=== PATIENT | female | born 1985 | race Caucasian/White ===

== ENCOUNTER 2018-03-01 13:14 | Emergency (ER) | payer SELFPAY ==
--- NOTE | 2018-03-01 14:56 | ER ---
Nurse's Notes [facility] Name: Michelle Plasencia Age: 33 yrs Sex: Female : 1985 Arrival Date: 03/01/2018 Time: 13:18 Bed Treatment Private MD: Diagnosis: Cutaneous abscess of chest wall Presentation: 03/01 13:29 Presenting complaint:. ch 13:29 Presenting complaint: Patient states: infection to my R breast, I think its an abscess. ch I was exposed to TB for months at my job. I am very tired and worried I have sepsis again from the abscess. Transition of care: patient was not received from another setting of care. Onset of symptoms was February 27, 2018. Initial Sepsis Screen: Does the patient meet any 2 criteria? No. Patient's initial sepsis screen is negative. Does the patient have a suspected source of infection? Yes: Skin breakdown/wound. Care prior to arrival: None. 13:29 Method Of Arrival: Ambulatory 13:29 Acuity: OFELIA 4 ch Triage Assessment: 13:32 General: Appears in no apparent distress. comfortable, Behavior is calm, cooperative, ch appropriate for age. Pain: Complains of pain in right breast Pain currently is 6 out of 10 on a pain scale. Respiratory: Airway is patent Respiratory effort is even, unlabored. 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 - Social history:: Smoking status: Patient uses tobacco products, smokes one pack cigarettes per day. Patient uses alcohol, weekly. Patient/guardian denies using street drugs. Screenin:56 Abuse screen: Denies threats or abuse. Denies injuries from another. Nutritional ed1 screening: No deficits noted. Tuberculosis screening: Never had TB. Possible symptoms: None Risk factors: Patient reports being exposed at her place of employment. Health officials have been notified and all employees have been tested with negative results. Intervention for positive screen: ED Physician notified, No orders received at this time. Fall Risk None identified. Assessment: 14:56 General: Appears in no apparent distress. Behavior is calm, cooperative. Pain: ed1 Complains of pain in right breast Pain does not radiate. Pain currently is 6 out of 10 on a pain scale. Quality of pain is described as aching, Pain began 2-3 days ago. Is continuous. Neuro: Level of Consciousness is awake, alert, obeys commands, Oriented to person, place, time, situation. Cardiovascular: Denies chest pain, Heart tones S1 S2 present. Respiratory: Airway is patent Trachea midline Respiratory effort is even, unlabored, Respiratory pattern is regular, symmetrical, Breath sounds are clear bilaterally. GI: No signs and/or symptoms were reported involving the gastrointestinal system. : No signs and/or symptoms were reported regarding the genitourinary system. EENT: No signs and/or symptoms were reported regarding the EENT system. Derm: Skin is healthy with good turgor, Skin is dry, Skin is normal, Skin temperature is warm Abscess located on right breast is dime sized, is red, is raised. Musculoskeletal: Circulation, motion, and sensation intact. 14:56 Reassessment: I agree with assessment completed by JACQUELINE Kelly . aaNavneet 15:09 Reassessment: Patient appears in no apparent distress at this time. No changes from ed1 previously documented assessment. Patient and/or family updated on plan of care and expected duration. Pain level reassessed. Patient is alert, oriented x 3, equal unlabored respirations, skin warm/dry/pink. Vital Signs: 13:32 BP 121 / 78; Pulse 89; Resp 16; Temp 98.2(O); Pulse Ox 99% on R/A; Weight 99.79 kg; Height 5 ft. 7 in. (170.18 cm); Pain 6/10; 15:09 BP 122 / 74; Pulse 86; Resp 16; Temp 98.7(O); Pulse Ox 100% on R/A; Pain 6/10; ed1 13:32 Body Mass Index 34.46 (99.79 kg, 170.18 cm) ED Course: 13:18 Patient arrived in ED. sb2 13:31 Triage completed. 13:32 Arm band placed on left wrist. Patient placed in waiting room. 14:34 Leticia Newby LVN is Primary Nurse. ed1 14:34 Clara Black FNP-C is [facility]. 14:34 Cruz Traylor MD is Attending Physician. kb 14:56 Patient has correct armband on for positive identification. Call light in reach. ed1 15:09 No provider procedures requiring assistance completed. Patient did not have IV access ed1 during this emergency room visit. Administered Medications: 15:06 Drug: Bactrim (160 mg-800 mg (DS) 1 tablet Route: PO; ed1 15:10 Follow up: Response: Medication administered at discharge. ed1 Outcome: 14:56 Discharge ordered by MD. kb 15:09 Discharged to home ambulatory. ed1 15:09 Condition: good 15:09 Discharge instructions given to patient, Instructed on discharge instructions, follow up and referral plans. medication usage, Demonstrated understanding of instructions, follow-up care, medications, Prescriptions given X 1. 15:11 Patient left the ED. ed1 Signatures: Clara Black FNP-C FNP-Ckb Hammond, Christina, RN RN Marylou Arredondo RN RN aa5 Leticia Newby LVN LVN ed1 Yudelka Olivo sb2
--- NOTE | 2018-03-01 14:57 | EDPHYS ---
Physician Documentation [facility] Name: Michelle Plasencia Age: 33 yrs Sex: Female : 1985 Arrival Date: 03/01/2018 Time: 13:18 Bed Treatment Private MD: ED Physician Cruz Traylor HPI: 03/01 14:54 This 33 yrs old Female presents to ER via Ambulatory with complaints of kb INFECTION UNDER BREAST, Weakness. 14:54 The patient presents with an abscess of the right breast. Description: draining, kb erythematous, swollen. Onset: The symptoms/episode began/occurred 3 day(s) ago. Possible cause(s): unknown. Associated signs and symptoms: Pertinent positives: drainage, erythema, swelling, Pertinent negatives: foreign body sensation, fever, headache, nausea, shortness of breath, vomiting. Modifying factors: the symptoms are alleviated by nothing, the symptoms are aggravated by pressure, squeezing the lesion and expressing the contents, touching. Severity of symptoms: At their worst the symptoms were very mild, in the emergency department the symptoms are unchanged. The patient has not experienced similar symptoms in the past. The patient has not recently seen a physician. Pt reports abscess to right breast that started a few days ago and popped yesterday. . 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 - Social history:: Smoking status: Patient uses tobacco products, smokes one pack cigarettes per day. Patient uses alcohol, weekly. Patient/guardian denies using street drugs. ROS: 14:53 Constitutional: Negative for fever, chills, and weight loss, Cardiovascular: Negative kb for chest pain, palpitations, and edema, Respiratory: Negative for shortness of breath, cough, wheezing, and pleuritic chest pain, Abdomen/GI: Negative for abdominal pain, nausea, vomiting, diarrhea, and constipation, MS/Extremity: Negative for injury and deformity, Neuro: Negative for headache, weakness, numbness, tingling, and seizure. 14:53 Skin: Positive for abscess, of the right breast. Exam: 14:53 Constitutional: This is a well developed, well nourished patient who is awake, alert, kb and in no acute distress. Head/Face: Normocephalic, atraumatic. Chest/axilla: Normal chest wall appearance and motion. Nontender with no deformity. No lesions are appreciated. Cardiovascular: Regular rate and rhythm with a normal S1 and S2. No gallops, murmurs, or rubs. Normal PMI, no JVD. No pulse deficits. Respiratory: Lungs have equal breath sounds bilaterally, clear to auscultation and percussion. No rales, rhonchi or wheezes noted. No increased work of breathing, no retractions or nasal flaring. Abdomen/GI: Soft, non-tender, with normal bowel sounds. No distension or tympany. No guarding or rebound. No evidence of tenderness throughout. MS/ Extremity: Pulses equal, no cyanosis. Neurovascular intact. Full, normal range of motion. Neuro: Awake and alert, GCS 15, oriented to person, place, time, and situation. Cranial nerves II-XII grossly intact. Motor strength 5/5 in all extremities. Sensory grossly intact. Cerebellar exam normal. Normal gait. 14:53 Skin: abscess, that is small, of the right breast, with drainage, that is purulent, with induration. Vital Signs: 13:32 BP 121 / 78; Pulse 89; Resp 16; Temp 98.2(O); Pulse Ox 99% on R/A; Weight 99.79 kg; ch Height 5 ft. 7 in. (170.18 cm); Pain 6/10; 15:09 BP 122 / 74; Pulse 86; Resp 16; Temp 98.7(O); Pulse Ox 100% on R/A; Pain 6/10; ed1 13:32 Body Mass Index 34.46 (99.79 kg, 170.18 cm) ch MDM: 14:34 Patient medically screened. kb 14:53 Data reviewed: vital signs, nurses notes. Data interpreted: Pulse oximetry: on room air kb is 99 %. Interpretation: normal. Counseling: I had a detailed discussion with the patient and/or guardian regarding: the historical points, exam findings, and any diagnostic results supporting the discharge/admit diagnosis, the need for outpatient follow up, a family practitioner, a general surgeon, to return to the emergency department if symptoms worsen or persist or if there are any questions or concerns that arise at home. Administered Medications: 15:06 Drug: Bactrim (160 mg-800 mg (DS) 1 tablet Route: PO; ed1 15:10 Follow up: Response: Medication administered at discharge. ed1 Disposition: 22:32 Co-signature as Attending Physician, Cruz Traylor MD I agree with the assessment and kdr plan of care. Disposition: 03/01/18 14:56 Discharged to Home. Impression: Cutaneous abscess of chest wall. - Condition is Stable. - Discharge Instructions: Abscess, [id number]. - Prescriptions for Bactrim DS 800- 160 mg Oral Tablet - take 1 tablet by ORAL route every 12 hours for 7 days; 14 tablet. - Medication Reconciliation Form, Thank You Letter, Antibiotic Education, Prescription Opioid Use, Work release form form. - Follow up: Emergency Department; When: As needed; Reason: Worsening of condition. Follow up: Private Physician; When: 2 - 3 days; Reason: Recheck today's complaints, Continuance of care, Re-evaluation by your physician. Signatures: Clara Black, ANDERSON-C TECHNICAL SERVICES CONSULTANT-Miranda Chau RN RN ch Rittger, Kevin, MD MD [facility] Leticia Newby, WAFER FABRICATION OPERATOR WAFER FABRICATION OPERATOR ed1 Corrections: (The following items were deleted from the chart) 15:11 14:56 03/01/2018 14:56 Discharged to Home. Impression: Cutaneous abscess of chest wall. ed1 Condition is Stable. Forms are Medication Reconciliation Form, Thank You Letter, Antibiotic Education, Prescription Opioid Use. Follow up: Emergency Department; When: As needed; Reason: Worsening of condition. Follow up: Private Physician; When: 2 - 3 days; Reason: Recheck today's complaints, Continuance of care, Re-evaluation by your physician. kb
[2018-03-01] MEDS ORDERED: SMZ./TMP. 800/160 MG TABLET ONE (15:03)
[2018-03-01 15:18] VITALS: BP 122/74; TEMP 98.7; O2SAT 100
== END 2018-03-01 15:11 | disposition home or self-care (01) ==
LOC: ER 13:14
DX: L02.213 Cutaneous abscess of chest wall (principal); R01.1 Cardiac murmur, unspecified; Z91.030 Bee allergy status; Z91.040 Latex allergy status; Z91.048 Other nonmedicinal substance allergy status
CPT/HCPCS: 99283

== ENCOUNTER 2018-03-07 03:03 | Emergency (ER) | payer SELFPAY ==
[2018-03-07] MEDS ORDERED: WATER FOR INJ,STERILE 10 ML ONE (03:24)
[2018-03-07] MEDS ORDERED: ZIPRASIDONE MESYLA 20 MG/VIAL IM ONE (03:24)
[2018-03-07 03:49] LABS: Absolute Lymphocytes (CBC) 2.2 K/uL (0.7-4.9); Absolute Monocytes 0.5 K/uL (0.1-1.3); Absolute Neutrophil 4.6 K/uL (1.8-8.0); Basophils % 0.9 % (0-1.3); Eosinophils % 0.5 % (0-4.4); Hematocrit 47.2 % (36.0-45.0); Lymphocytes % 29.9 % (15.3-44.8); MCH 34.3 pg (27.0-35.0); MCV 100.8 fL (80-100); MPV 9.2 fL (7.6-11.3); Monocytes % 7.1 % (3.3-12.3); RBC Red Blood Cell Count 4.69 M/uL (3.86-4.86)
[2018-03-07 03:53] LABS: Bicarbonate 24 mEq/L (21-31); Glucose Level 113 mg/dL (65-120); Potassium 3.7 mEq/L (3.6-5.0); Protime INR 1.01; Sodium Level 142 mEq/L (135-145)
[2018-03-07] MEDS ORDERED: ACT CHARCOAL/SORB 50 GM/240ML ONE (03:54)
[2018-03-07 04:01] LABS: ALT/SGPT 66 IU/L (10-60); AST/SGOT 41 IU/L (10-42); Albumin 4.4 g/dL (3.2-5.5); Alkaline Phosphatase 97 IU/L (42-121); BUN Blood Urea Nitrogen 6 mg/dL (6-20); Bilirubin Direct 0.1 mg/dL (0-0.2); Bilirubin Total 0.5 mg/dL (0.3-1.2)
[2018-03-07 04:08] LABS: Barbiturates NEGATIVE; Benzodiazepines NEGATIVE; Cocaine NEGATIVE; METHAMPHETAM NEGATIVE; Opiates NEGATIVE; Phencyclidine NEGATIVE; THC Cannibis NEGATIVE
[2018-03-07] MEDS ORDERED: ONDANSETRON 4 MG/2 ML VIAL ONE (04:19)
[2018-03-07 04:23] LABS: Alcohol Serum/Plasma 197 mg/dl; Salicylates Level < 4.0 mg/dl (<30)
[2018-03-07] MEDS ORDERED: NA CHLORIDE 0.9% 1,000 ML ONE (08:27)
[2018-03-07] MEDS ORDERED: THIAMINE 200 MG/2 ML INJ ONE (08:27)
--- NOTE | 2018-03-07 08:44 | EKG ---
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
[2018-03-07 09:48] LABS: Salicylates Level < 4.0 mg/dl (<30)
--- NOTE | 2018-03-07 10:01 | ER ---
Nurse's Notes [facility] Name: Michelle Plasencia Age: 33 yrs Sex: Female : 1985 Arrival Date: 03/07/2018 Time: 03:11 Bed 18 Private MD: Diagnosis: Alcohol abuse with intoxication;Major depressive disorder, recurrent Presentation: 03/07 03:11 Presenting complaint: EMS states: "We were called out for a pt who had taken a large jd3 number of unknown pills and 2 bottles of wine, family reported she wanted to kill herself." pt brought by EMS with [place] [employer] assisting. "Police initially called out for family reporting that the pt was wanting to kill herself with 3 steps: 1. alcohol 2. drugs 3. gas poisoning.". Transition of care: patient was not received from another setting of care. Onset of symptoms was March 07, 2018. Initial Sepsis Screen: Does the patient meet any 2 criteria? No. Patient's initial sepsis screen is negative. Does the patient have a suspected source of infection? No. Patient's initial sepsis screen is negative. Care prior to arrival: None. 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 - Social history:: Smoking status: Patient uses tobacco products, smokes one pack cigarettes per day. Screenin:19 Abuse screen: Denies threats or abuse. Nutritional screening: No deficits noted. jd3 Tuberculosis screening: No symptoms or risk factors identified. Fall Risk Secondary diagnosis (15 points) impaired mobility, Mental Status- Overestimates/Forgets Limitations (15 pts.). Total Jackson Fall Scale indicates Low Risk Score (25-44 pts). Fall prevention measures have been instituted. Side Rails Up X 2 Placed close to Nursing Station Frequent Obs/Assesments occuring. Assessment: 03:25 General: Appears uncomfortable, Behavior is agitated, Smells of alcohol. Pain: Denies jd3 pain. Neuro: Level of Consciousness is awake, obeys commands, Oriented to person, place, time, situation, Speech is slurred. Cardiovascular: Heart tones S1 S2 present Capillary refill < 3 seconds Patient's skin is warm and dry. Pulses are palpable in right radial artery and left radial artery. Respiratory: Airway is patent Respiratory effort is even, unlabored, Respiratory pattern is regular, symmetrical, Breath sounds are clear bilaterally. GI: Abdomen is round obese, Bowel sounds present X 4 quads. Abd is soft and non tender X 4 quads. Patient currently denies abdominal pain, constipation, diarrhea, nausea, vomiting. : No signs and/or symptoms were reported regarding the genitourinary system. EENT: No signs and/or symptoms were reported regarding the EENT system. Derm: Skin is intact, Skin is dry, Skin is normal, Skin temperature is warm. Musculoskeletal: Circulation, motion, and sensation intact. Range of motion: intact in all extremities. 03:36 Reassessment: pt agreed to cooperate with medical staff pt requesting not to be given jd3 the Geodon. Provider notified, provider stated "hold the Geodon until needed.". 04:35 Reassessment: Patient appears in no apparent distress at this time. No changes from jd3 previously documented assessment. Patient and/or family updated on plan of care and expected duration. Pain level reassessed. Patient is alert, oriented x 3, equal unlabored respirations, skin warm/dry/pink. sitter at bedside. 05:30 Reassessment: Patient appears in no apparent distress at this time. Patient and/or jd3 family updated on plan of care and expected duration. Pain level reassessed. Patient is alert, oriented x 3, equal unlabored respirations, skin warm/dry/pink. sitter at bedside. 06:30 Reassessment: Patient appears in no apparent distress at this time. Patient and/or jd3 family updated on plan of care and expected duration. Pain level reassessed. Patient is alert, oriented x 3, equal unlabored respirations, skin warm/dry/pink. pt resting in bed with eyes closed, even and unlabored respirations, sitter at bedside, no distress noted at this time. 07:12 General: Appears in no apparent distress. comfortable, Behavior is calm, cooperative, ch appropriate for age, quiet, Smells of alcohol. Pain: Complains of pain in head and back of head Pain currently is 4 out of 10 on a pain scale. Pain began gradually. Neuro: Level of Consciousness is awake, obeys commands, Oriented to person, place, time, situation, Network Analyst are equal bilaterally Moves all extremities. Speech is slurred, Facial symmetry appears normal, Facial symmetry: tongue is midline. Cardiovascular: Heart tones S1 S2 present Capillary refill < 3 seconds in bilateral fingers toes Clubbing of nail beds is absent Patient's skin is warm and dry. Pulses are all present. Edema is absent. Respiratory: Airway is patent Respiratory effort is even, unlabored. GI: No signs and/or symptoms were reported involving the gastrointestinal system. : No signs and/or symptoms were reported regarding the genitourinary system. EENT: No signs and/or symptoms were reported regarding the EENT system. Derm: Skin is pink, warm \\T\\ dry. 07:14 Reassessment: Ailyn is at bedside as sitter for pt today. 07:52 Reassessment: Patient appears in no apparent distress at this time. No changes from previously documented assessment. 07:57 Reassessment: Patient appears in no apparent distress at this time. Patient and/or ch family updated on plan of care and expected duration. Pain level reassessed. erp in room discussing plan of care with pt. pt states she does not want to hurt herself, states she does not want to . she states she just got drunk last night and made a mistake. 09:10 Reassessment: Patient appears in no apparent distress at this time. PT EATS ALL OF HER BREAKFAST, REPEAT LABS DRAWN NOW. 09:42 Reassessment: Patient appears in no apparent distress at this time. Patient and/or ch family updated on plan of care and expected duration. Pain level reassessed. Patient is alert, oriented x 3, equal unlabored respirations, skin warm/dry/pink. family at bedside, erp speaks with family. awaiting lab results. 10:20 Reassessment: Patient appears in no apparent distress at this time. Patient and/or ch family updated on plan of care and expected duration. Pain level reassessed. Patient is alert, oriented x 3, equal unlabored respirations, skin warm/dry/pink. pt states she is feeling better, denies waitng to harm herself or others. pt has family at bedside, who states they want to stay with the pt for a few days. pt states her plan is to go home and sleep today, call the [facility] to get and appointment, go to the appointment then go back to work. pt and family states they feel comfortable with the discharge. pt states if she feels suicidal or feels like harming herself she will come back, tell her mom, or call 911. pt verb understanding, denies wanting to harm herself or others again. pt states she was feeling this way because she was drunk, and she wont be drinking any time soon. 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 alcohol 2. drugs 3. gas poisoning.". Objective: Patient is defensive, irritable, Speech is slurred, Affect is inappropriate. Interventions: Removed personal items and placed in bag. Patient placed in hospital gown. Searched person for dangerous items. Suicide Risk Assessment: Sad Person Scale: Sex of patient: Female: Score 0 points. Age of patient: Score 1 point if patient 15-34. Depression: Score 0 point if signs of depression are not present. Previous Attempt: Score 1 point if patient has previously attempted suicide. Substance Abuse: Score 1 point if patient abuses alcohol or drugs. Rational Thinking: Score 1 point if patient is lacking rational thinking. Social Support: Score 0 if social support is present/available. Organized Plan: Score 1 point if patient had a plan in place. Relationship: Score 0 point if patient has a spouse or domestic partner. Chronic Sickness: Score 0 point if patient does not have a chronic illness, debilitating, or severe disorder. TOTAL POINTS: If total points are 5-6, proposed clinical action is to strongly consider hospitalization, depending upon confidence in the follow-up arrangement. Implement suicide precautions. Safety Checks: Personal items have been removed. Door is open. No visitors are present at this time. Pt denies substance abuse. 10:28 Commitment: family at bedside, states they will stay with the patient for a few days. Vital Signs: 03:18 BP 114 / 66; Pulse 96; Resp 17 S; Temp 99.2(O); Pulse Ox 97% on R/A; Weight 102.51 kg jd3 (R); Height 5 ft. 7 in. (170.18 cm) (R); Pain 0/10; 04:36 BP 111 / 63; Pulse 89; Resp 18 S; Temp 97.6(O); Pulse Ox 97% on R/A; Pain 0/10; jd3 05:42 BP 102 / 65; Pulse 81; Resp 15 S; Temp 97.7(O); Pulse Ox 95% on R/A; Pain 0/10; jd3 07:12 BP 109 / 73; Pulse 90; Resp 16; Temp 97.2; Pulse Ox 96% on R/A; Pain 4/10; ch 10:25 BP 115 / 78; Pulse 78; Resp 15; Temp 98.2; Pulse Ox 99% on R/A; Pain 0/10; ch 03:18 Body Mass Index 35.40 (102.51 kg, 170.18 cm) jd3 ED Course: 03:11 Patient arrived in ED. jd3 03:15 Triage completed. jd3 03:15 Safety Checks: Personal items have been removed The door is open or patient has been jd3 placed in a hallway bed/chair. There are no family/friend visitors at this time. 03:18 Terrance Vazquez MD is Attending Physician. tw4 03:19 Arm band placed on. jd3 03:22 Inserted saline lock: 20 gauge in right antecubital area, using aseptic technique. jd3 Blood collected. 03:25 Patient has correct armband on for positive identification. Placed in gown. Bed in low jd3 position. Side rails up X2. 03:30 Safety Checks: Personal items have been removed The door is open or patient has been jd3 placed in a hallway bed/chair. There are no family/friend visitors at this time. 03:32 Christ Delgado RN is Primary Nurse. jd3 03:45 Safety Checks: Personal items have been removed The door is open or patient has been jd3 placed in a hallway bed/chair. There are no family/friend visitors at this time. 04:00 Safety Checks: Personal items have been removed The door is open or patient has been jd3 placed in a hallway bed/chair. There are no family/friend visitors at this time. 04:15 Safety Checks: Personal items have been removed The door is open or patient has been jd3 placed in a hallway bed/chair. There are no family/friend visitors at this time. 04:23 Notified ED physician of a critical lab result(s). tylenol level of 79.9. fc 04:30 Safety Checks: Personal items have been removed The door is open or patient has been jd3 placed in a hallway bed/chair. There are no family/friend visitors at this time. 04:45 Safety Checks: Personal items have been removed The door is open or patient has been jd3 placed in a hallway bed/chair. There are no family/friend visitors at this time. 05:00 Safety Checks: Personal items have been removed The door is open or patient has been jd3 placed in a hallway bed/chair. There are no family/friend visitors at this time. 05:15 Safety Checks: Personal items have been removed The door is open or patient has been jd3 placed in a hallway bed/chair. There are no family/friend visitors at this time. 05:30 Safety Checks: Personal items have been removed The door is open or patient has been jd3 placed in a hallway bed/chair. There are no family/friend visitors at this time. 05:45 Safety Checks: Personal items have been removed The door is open or patient has been jd3 placed in a hallway bed/chair. There are no family/friend visitors at this time. 06:00 Safety Checks: Personal items have been removed The door is open or patient has been jd3 placed in a hallway bed/chair. There are no family/friend visitors at this time. 06:15 Safety Checks: Personal items have been removed The door is open or patient has been jd3 placed in a hallway bed/chair. There are no family/friend visitors at this time. 06:30 Safety Checks: Personal items have been removed The door is open or patient has been jd3 placed in a hallway bed/chair. There are no family/friend visitors at this time. 06:45 Safety Checks: Personal items have been removed The door is open or patient has been jd3 placed in a hallway bed/chair. There are no family/friend visitors at this time. 07:00 No apparent distress. Resting quietly. Safety Checks: Personal items have been removed ch The door is open or patient has been placed in a hallway bed/chair. There are no family/friend visitors at this time. 07:11 Primary Nurse role handed off by Christ Delgado RN 07:11 Miranda Cisneros, DANILO is Primary Nurse. 07:12 No provider procedures requiring assistance completed. 07:15 Safety Checks: Personal items have been removed The door is open or patient has been ch placed in a hallway bed/chair. There are no family/friend visitors at this time. 07:28 Attending Physician role handed off by Terrance Vazquez MD [facility] 07:28 Heath Mandel MD is Attending Physician. [facility] 07:30 Safety Checks: Personal items have been removed The door is open or patient has been ch placed in a hallway bed/chair. There are no family/friend visitors at this time. 07:45 Safety Checks: Personal items have been removed The door is open or patient has been ch placed in a hallway bed/chair. There are no family/friend visitors at this time. 08:00 Safety Checks: Personal items have been removed The door is open or patient has been ch placed in a hallway bed/chair. There are no family/friend visitors at this time. 08:15 Safety Checks: Personal items have been removed The door is open or patient has been ch placed in a hallway bed/chair. There are no family/friend visitors at this time. 08:30 Safety Checks: Personal items have been removed The door is open or patient has been ch placed in a hallway bed/chair. There are no family/friend visitors at this time. 08:45 Safety Checks: Personal items have been removed The door is open or patient has been ch placed in a hallway bed/chair. There are no family/friend visitors at this time. 09:00 Safety Checks: Personal items have been removed The door is open or patient has been ch placed in a hallway bed/chair. There are no family/friend visitors at this time. 09:15 No apparent distress. Resting quietly. Safety Checks: Personal items have been removed ch The door is open or patient has been placed in a hallway bed/chair. There are no family/friend visitors at this time. 09:30 Safety Checks: Personal items have been removed The door is open or patient has been ch placed in a hallway bed/chair. There are no family/friend visitors at this time. 09:43 Safety Checks: Personal items have been removed The door is open or patient has been ch placed in a hallway bed/chair. There are no family/friend visitors at this time. 10:00 Safety Checks: Personal items have been removed The door is open or patient has been ch placed in a hallway bed/chair. There are no family/friend visitors at this time. 10:15 Safety Checks: Personal items have been removed The door is open or patient has been ch placed in a hallway bed/chair. There are no family/friend visitors at this time. 10:25 IV discontinued, intact, bleeding controlled, No redness/swelling at site. Pressure ch dressing applied. 10:27 Safety Checks: Personal items have been removed The door is open or patient has been ch placed in a hallway bed/chair. There are no family/friend visitors at this time. Administered Medications: 04:21 Drug: Zofran 4 mg Route: IVP; Site: right antecubital; ak1 07:00 Follow up: Response: No adverse reaction; Nausea is decreased jd3 07:53 Follow up: Response: No adverse reaction; Marked relief of symptoms ch 04:27 Drug: Charcoal Suspension 50 grams Route: PO; jd3 07:00 Follow up: Response: No adverse reaction jd3 07:03 Not Given (Physician Discretion): Geodon 10 mg IM once jd3 08:30 Drug: NS 0.9% 1000 ml Route: IV; Rate: 1 bolus; Site: right antecubital; ch 09:18 Follow up: IV Status: Completed infusion; IV Intake: 1000ml ch 08:30 Drug: Thiamine 100 mg Route: IV; Rate: bolus; Site: right antecubital; ch 09:18 Follow up: IV Status: Completed infusion; IV Intake: 1000ml ch Intake: 09:18 IV: 1000ml; Total: 1000ml. ch 09:18 IV: 1000ml; Total: 2000ml. ch Output: 08:22 Urine: 1ml (Voided); Total: 1ml. rb1 Outcome: 10:00 Discharge ordered by . ankita 10:27 Discharged to home ambulatory, with family. ch 10:27 Condition: stable 10:27 Discharge instructions given to patient, family, Instructed on discharge instructions, follow up and referral plans. return for feeling hopeless, depressed, SI, HI, or abdominal pain 10:28 Patient left the ED. ch Signatures: Miranda Cisneros, RN Heath López ch, MD MD cha Chretien, Felicia RN Katiana Lezama RN RN ak1 Bev Almaraz RN RN rb1 Christ Delgado RN RN jd3 Wadley, Terrence, MD MD tw4 Corrections: (The following items were deleted from the chart) 03:35 03:11 Presenting complaint: EMS states: "We were called out for a pt who had taken a jd3 large number of unknown pills and 2 bottles of wine, family reported she wanted to kill herself." pt brought by EMS with PD assisting. jd3 03:40 03:25 Cardiovascular: Capillary refill < 3 seconds Patient's skin is warm and dry. jd3 Pulses are palpable in right radial artery and left radial artery jd3 03:40 03:25 Respiratory: Airway is patent Respiratory effort is even, unlabored, Respiratory jd3 pattern is regular, symmetrical, Breath sounds are clear bilaterally. jd3 03:40 03:25 GI: Abdomen is round obese, Patient currently denies abdominal pain, jd3 constipation, diarrhea, nausea, vomiting, jd3 03:40 03:25 GI: Abdomen is round obese, Bowel sounds present X 4 quads. Patient currently jd3 denies abdominal pain, constipation, diarrhea, nausea, vomiting, jd3 04:36 03:41 Safety Checks: Personal items have been removed The door is open or patient has jd3 been placed in a hallway bed/chair. There are no family/friend visitors at this time jd3 06:37 04:35 Reassessment: Patient appears in no apparent distress at this time. No changes jd3 from previously documented assessment. Patient and/or family updated on plan of care and expected duration. Pain level reassessed. Patient is alert, oriented x 3, equal unlabored respirations, skin warm/dry/pink. jd3 06:37 05:30 Reassessment: Patient appears in no apparent distress at this time. Patient jd3 and/or family updated on plan of care and expected duration. Pain level reassessed. Patient is alert, oriented x 3, equal unlabored respirations, skin warm/dry/pink. jd3
--- NOTE | 2018-03-07 10:01 | EDPHYS ---
Physician Documentation [facility] Name: Michelle Plasencia Age: 33 yrs Sex: Female : 1985 Arrival Date: 03/07/2018 Time: 03:11 Bed 18 Private MD: ED Physician Heath Mandel HPI: 03/07 03:56 This 33 yrs old Female presents to ER via EMS with complaints of suicidal tw4 ideation. 07:15 The patient presents to the emergency department with suicide ideation. Onset: The tw4 symptoms/episode began/occurred today. Past psychiatric history: Prior diagnosis: bipolar disorder. Associated signs and symptoms: The patient has no apparent associated signs or symptoms. Severity of symptoms: At their worst the symptoms were moderate in the emergency department the symptoms are unchanged. The patient has not experienced similar symptoms in the past. 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 - Social history:: Smoking status: Patient uses tobacco products, smokes one pack cigarettes per day. ROS: 07:15 Constitutional: Negative for fever, chills, and weight loss, Eyes: Negative for injury, tw4 pain, redness, and discharge, Cardiovascular: Negative for chest pain, palpitations, and edema, Respiratory: Negative for shortness of breath, cough, wheezing, and pleuritic chest pain, Abdomen/GI: Negative for abdominal pain, nausea, vomiting, diarrhea, and constipation, MS/Extremity: Negative for injury and deformity, Neuro: Negative for headache, weakness, numbness, tingling, and seizure. 07:15 Psych: Positive for depression, suicide gesture, suicidal ideation. Exam: 07:15 Head/Face: Normocephalic, atraumatic. Chest/axilla: Normal chest wall appearance and tw4 motion. Nontender with no deformity. No lesions are appreciated. Cardiovascular: Regular rate and rhythm with a normal S1 and S2. No gallops, murmurs, or rubs. Normal PMI, no JVD. No pulse deficits. Respiratory: Lungs have equal breath sounds bilaterally, clear to auscultation and percussion. No rales, rhonchi or wheezes noted. No increased work of breathing, no retractions or nasal flaring. Abdomen/GI: Soft, non-tender, with normal bowel sounds. No distension or tympany. No guarding or rebound. No evidence of tenderness throughout. MS/ Extremity: Pulses equal, no cyanosis. Neurovascular intact. Full, normal range of motion. Neuro: Awake and alert, GCS 15, oriented to person, place, time, and situation. Cranial nerves II-XII grossly intact. Motor strength 5/5 in all extremities. Sensory grossly intact. Cerebellar exam normal. Normal gait. 07:15 Constitutional: The patient appears agitated. 07:15 Psych: Behavior/mood is cooperative, aggressive, uncooperative, Affect is flat, Oriented to person, place, time, Patient having thoughts of suicide. Vital Signs: 03:18 BP 114 / 66; Pulse 96; Resp 17 S; Temp 99.2(O); Pulse Ox 97% on R/A; Weight 102.51 kg jd3 (R); Height 5 ft. 7 in. (170.18 cm) (R); Pain 0/10; 04:36 BP 111 / 63; Pulse 89; Resp 18 S; Temp 97.6(O); Pulse Ox 97% on R/A; Pain 0/10; jd3 05:42 BP 102 / 65; Pulse 81; Resp 15 S; Temp 97.7(O); Pulse Ox 95% on R/A; Pain 0/10; jd3 07:12 BP 109 / 73; Pulse 90; Resp 16; Temp 97.2; Pulse Ox 96% on R/A; Pain 4/10; ch 10:25 BP 115 / 78; Pulse 78; Resp 15; Temp 98.2; Pulse Ox 99% on R/A; Pain 0/10; ch 03:18 Body Mass Index 35.40 (102.51 kg, 170.18 cm) jd3 MDM: 03:18 Patient medically screened. tw4 07:29 Patient medically screened. [facility] 03/07 03:18 Order name: Acetaminophen; Complete Time: 08:13 03/07 03:18 Order name: Basic Metabolic Panel; Complete Time: 08:13 03/07 03:18 Order name: CBC with Diff; Complete Time: 08:13 [facility] 03/07 03:18 Order name: ETOH Level; Complete Time: 08:13 [facility] 03/07 03:18 Order name: Hepatic Function; Complete Time: 08:13 03/07 03:18 Order name: PT-INR; Complete Time: 08:13 03/07 03:18 Order name: Ptt, Activated; Complete Time: 08:13 03/07 03:18 Order name: Salicylate; Complete Time: 08:13 03/07 03:18 Order name: Urine Drug Screen; Complete Time: 08:13 03/07 08:14 Order name: Tylenol Level; Complete Time: 09:59 [facility] 03/07 08:14 Order name: Asprin; Complete Time: 09:59 [facility] 03/07 09:19 Order name: ETOH Level 03/07 03:18 Order name: Urine Test (obtain specimen); Complete Time: 03:51 03/07 03:18 Order name: EKG; Complete Time: 03:19 03/07 03:18 Order name: EKG - Nurse/Tech; Complete Time: 03:51 03/07 03:18 Order name: IV Saline Lock; Complete Time: 03:33 03/07 03:18 Order name: Labs collected and sent; Complete Time: 03:33 03/07 03:18 Order name: Urine Dipstick-Ancillary (obtain specimen); Complete Time: 03:51 03/07 07:15 Order name: Diet Finger Food; Complete Time: 07:15 EC:05 Rate is 85 beats/min. Rhythm is regular. QRS [place] is Normal. AR interval is normal. QRS tw4 interval is normal. QT interval is normal. No Q waves. T waves are Inverted in leads aVR, V1. No ST changes noted. Clinical impression: No evidence of ischemia. Interpreted by me. Reviewed by me. Administered Medications: 04:21 Drug: Zofran 4 mg Route: IVP; Site: right antecubital; ak1 07:00 Follow up: Response: No adverse reaction; Nausea is decreased jd3 07:53 Follow up: Response: No adverse reaction; Marked relief of symptoms 04:27 Drug: Charcoal Suspension 50 grams Route: PO; jd3 07:00 Follow up: Response: No adverse reaction jd3 07:03 Not Given (Physician Discretion): Geodon 10 mg IM once jd3 08:30 Drug: NS 0.9% 1000 ml Route: IV; Rate: 1 bolus; Site: right antecubital; 09:18 Follow up: IV Status: Completed infusion; IV Intake: 1000ml 08:30 Drug: Thiamine 100 mg Route: IV; Rate: bolus; Site: right antecubital; 09:18 Follow up: IV Status: Completed infusion; IV Intake: 1000ml Disposition: 03/07/18 10:00 Discharged to Home. Impression: Alcohol abuse with intoxication, Major depressive disorder, recurrent. - Condition is Stable. - Discharge Instructions: Alcohol Intoxication, Depression, Adult, Helping Someone Who is Suicidal, Alcohol Intoxication, Zeox-yq-Eidh, Depression, Adult, [id number]-[id number]. - Work release form, Medication Reconciliation Form, Thank You Letter, Antibiotic Education, Prescription Opioid Use form. - Follow up: Private Physician; When: 2 - 3 days; Reason: Recheck today's complaints, Continuance of care, Re-evaluation by your physician. - Problem is new. - Symptoms have improved. Signatures: Dispatcher [employer] EDMS Miranda Cisneros RN RN ch Anderson, Corey, MD MD cha Krenek, Amber, RN RN ak1 Christ Delgado RN RN jd3 Terrance Vazquez MD MD tw4 Corrections: (The following items were deleted from the chart) 10:28 10:00 03/07/2018 10:00 Discharged to Home. Impression: Alcohol abuse with intoxication; Major depressive disorder, recurrent. Condition is Stable. Discharge Instructions: Alcohol Intoxication, Depression, Adult, Helping Someone Who is Suicidal, Alcohol Intoxication, Rune-br-Luir, Depression, Adult, Bctt-vz-Nunb. Forms are Medication Reconciliation Form, Thank You Letter, Antibiotic Education, Prescription Opioid Use. Follow up: Private Physician; When: 2 - 3 days; Reason: Recheck today's complaints, Continuance of care, Re-evaluation by your physician. Problem is new. Symptoms have improved. ankita
[2018-03-07 10:38] VITALS: BP 115/78; TEMP 98.2; O2SAT 99
== END 2018-03-07 10:28 | disposition home or self-care (01) ==
LOC: ER 03:03
DX: F10.129 Alcohol abuse with intoxication, unspecified (principal); F33.9 Major depressive disorder, recurrent, unspecified; F17.210 Nicotine dependence, cigarettes, uncomplicated; R01.1 Cardiac murmur, unspecified; Z91.030 Bee allergy status; Z91.040 Latex allergy status; Z91.048 Other nonmedicinal substance allergy status
CPT/HCPCS: 36415; 80048; 80076; 80307; 80320; 80329; 85025; 85610; 85730; 93005; 96365; 96375; 99284; J2405; J3411; J3486; J7030

== ENCOUNTER 2018-07-03 13:45 | Emergency (ER) | payer SELFPAY ==
--- NOTE | 2018-07-03 15:06 | RAD REPORT ---
EXAM DESCRIPTION: RAD - Ankle Left 3 View - 07/03/2018 3:00 pm CLINICAL HISTORY: Pain;Swelling COMPARISON: No comparisons FINDINGS: Soft tissue swelling is seen along the lateral malleolus. No acute fracture or dislocation present. Prominent calcaneal spurs are identified.
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
[2018-07-03 16:34] VITALS: TEMP 97.5
[2018-07-03 16:37] VITALS: BP 126/76; O2SAT 100
== END 2018-07-03 16:11 | disposition home or self-care (01) ==
LOC: ER 13:45
DX: M25.572 Pain in left ankle and joints of left foot (principal); F17.210 Nicotine dependence, cigarettes, uncomplicated; Z91.030 Bee allergy status; Z91.040 Latex allergy status; Z91.048 Other nonmedicinal substance allergy status
CPT/HCPCS: 99284

== ENCOUNTER 2018-08-23 16:34 | Emergency (ER) | payer SELFPAY ==
[2018-08-23] MEDS ORDERED: NA CHLORIDE 0.9% 1,000 ML ONE (17:34)
[2018-08-23] MEDS ORDERED: ONDANSETRON 4 MG/2 ML VIAL ONE (17:34)
[2018-08-23] MEDS ORDERED: FAMOTIDINE 20 MG/2 ML VIAL IV ONE (17:34)
[2018-08-23 17:37] LABS: Absolute Lymphocytes (CBC) 1.5 K/uL (0.7-4.9); Absolute Monocytes 0.6 K/uL (0.1-1.3); Absolute Neutrophil 6.6 K/uL (1.8-8.0); Basophils % 0.4 % (0-1.3); Eosinophils % 0.6 % (0-4.4); Hematocrit 44.1 % (36.0-45.0); Lymphocytes % 17.1 % (15.3-44.8); MCH 34.7 pg (27.0-35.0); MCV 100.3 fL (80-100); MPV 9.7 fL (7.6-11.3); Monocytes % 7.3 % (3.3-12.3)
[2018-08-23 17:40] LABS: Protime INR 1.03
[2018-08-23 17:50] LABS: ALT/SGPT 80 U/L (12-78); AST/SGOT 44 U/L (15-37); Albumin 3.6 g/dL (3.4-5.0); Alkaline Phosphatase 101 U/L (45-117); BUN Blood Urea Nitrogen 6 mg/dL (7-18); Bicarbonate 22 mmol/L (21-32); Bilirubin Direct 0.2 mg/dL (0-0.2); Bilirubin Total 0.5 mg/dL (0.2-1.0); Glucose Level 94 mg/dL (74-106); Lipase 158 U/L (73-393); Magnesium 2.3 mg/dL (1.8-2.4); Potassium 3.3 mmol/L (3.5-5.1); Protein, Total 7.1 g/dL (6.4-8.2); Sodium Level 139 mmol/L (136-145)
[2018-08-23] MEDS ORDERED: PANTOPRAZOLE 40 MG INJ ONE (18:33)
--- NOTE | 2018-08-23 19:55 | RAD REPORT ---
EXAM DESCRIPTION: CT - Abdomen Pelvis W Contrast - 08/23/2018 7:42 pm CLINICAL HISTORY: Abdominal pain. Epigastric pain COMPARISON: October 2016 TECHNIQUE: Computed axial tomography of the abdomen and pelvis was obtained. 100 cc Isovue-300 is ad ministered intravenously. Oral contrast was given. All CT scans are performed using dose optimization technique as appropriate and may include automated exposure control or mA/KV adjustment according to patient size. FINDINGS: The liver, spleen, pancreas, adrenals and kidneys appear unremarkable. An adnexal mass is not seen. . There is no evidence of diverticulitis Wall of the proximal duodenum appears thickened IMPRESSION: Thickening of the wall of the proximal duodenum may indicate inflammation
[2018-08-23 20:05] LABS: Urine Blood NEGATIVE (NEG); Urine Glucose NEGATIVE (NEG); Urine Protein NEGATIVE (NEG); Urine Specific Gravity 1.015 (1.005-1.030)
--- NOTE | 2018-08-23 20:09 | ER ---
Nurse's Notes [facility] Name: Michelle Plasencia Age: 33 yrs Sex: Female : 1985 Arrival Date: 08/23/2018 Time: 16:37 Bed 24 Private MD: None, None Diagnosis: Epigastric pain Presentation: 08/23 16:43 Presenting complaint: Patient states: epigastric pain with intermittent radiation to sv the back, black stools, generalized weakness since Tuesday. Transition of care: patient was not received from another setting of care. Onset of symptoms was August 20, 2018. Care prior to arrival: None. 16:43 Method Of Arrival: Ambulatory sv 16:43 Acuity: OFELIA 3 sv 20:28 Risk Assessment: Do you want to hurt yourself or someone else? Patient reports no tl3 desire to harm self or others. Initial Sepsis Screen: Does the patient meet any 2 criteria? No. Patient's initial sepsis screen is negative. Does the patient have a suspected source of infection? No. Patient's initial sepsis screen is negative. Triage Assessment: 16:43 General: Appears in no apparent distress. uncomfortable, Behavior is calm, cooperative. sv Pain: Complains of pain in epigastric area Pain radiates to back Pain currently is 10 out of 10 on a pain scale. Pain began 2-3 days ago. Is continuous. Neuro: Level of Consciousness is awake, alert, obeys commands, Oriented to person, place, time, situation, Moves all extremities. Full function Gait is steady. Respiratory: Respiratory effort is even, unlabored, Respiratory pattern is regular, symmetrical. GI: Reports upper abdominal pain. 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 - Social history:: Smoking status: Patient uses tobacco products, smokes one pack cigarettes per day. Patient uses alcohol, occasionally. - Ebola Screening: : No symptoms or risks identified at this time. Screenin:00 Abuse screen: Denies threats or abuse. Nutritional screening: No deficits noted. tl3 Tuberculosis screening: No symptoms or risk factors identified. Fall Risk None identified. Assessment: 17:00 General: Appears distressed, uncomfortable, well groomed, well developed, well tl3 nourished, Behavior is calm, cooperative, anxious, crying. Pain: Complains of pain in abdomen and epigastric area. Neuro: Level of Consciousness is awake, alert, obeys commands. Cardiovascular: Patient's skin is warm and dry. Respiratory: Airway is patent Respiratory effort is even, unlabored. GI: Bowel sounds present X 4 quads. Abdomen is tender to palpation in right upper quadrant and left upper quadrant. : No signs and/or symptoms were reported regarding the genitourinary system. EENT: No signs and/or symptoms were reported regarding the EENT system. Derm: No signs and/or symptoms reported regarding the dermatologic system. Musculoskeletal: No signs and/or symptoms reported regarding the musculoskeletal system. 18:30 Reassessment: No changes from previously documented assessment. Patient and/or family tl3 updated on plan of care and expected duration. Pain level reassessed. Patient is alert, oriented x 3, equal unlabored respirations, skin warm/dry/pink. awaiting CT. 20:24 Reassessment: No changes from previously documented assessment. Patient and/or family tl3 updated on plan of care and expected duration. Pain level reassessed. Patient is alert, oriented x 3, equal unlabored respirations, skin warm/dry/pink. Vital Signs: 16:49 BP 135 / 77; Pulse 86; Resp 18; Temp 97.4; Pulse Ox 98% ; Weight 102.06 kg; Height 5 sv ft. 6 in. (167.64 cm); Pain 10/10; 18:30 BP 115 / 82; Pulse 71; Resp 18; Pulse Ox 100% on R/A; tl3 20:24 BP 118 / 89; Pulse 73; Resp 18; Pulse Ox 99% ; tl3 16:49 Body Mass Index 36.32 (102.06 kg, 167.64 cm) sv ED Course: 16:37 Patient arrived in ED. mr 16:37 None, None is Private Physician. mr 16:44 [facility] Shen [facility] cp 16:44 Heath Mandel MD is Attending Physician. cp 16:49 Triage completed. sv 16:49 Arm band placed on Patient placed in an exam room, on a stretcher, on pulse oximetry. sv 16:52 Lori Garcia, RN is Primary Nurse. tl3 17:00 Patient has correct armband on for positive identification. Placed in gown. Bed in low tl3 position. Call light in reach. Side rails up X 1. Pulse ox on. NIBP on. 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 Initial lab(s) drawn, by me, sent to lab. tl3 Inserted saline lock: 20 gauge in right forearm, using aseptic technique. Blood collected. 19:[address] via wheelchair. tl3 19:43 CT Abd/Pelvis - W/Contrast: give oral contrast In Process Unspecified. EDMS 20:08 Jordan Crespo MD is Referral Physician. cp 20:24 IV discontinued, intact, bleeding controlled, No redness/swelling at site. Pressure tl3 dressing applied. Administered Medications: 17:27 Drug: NS 0.9% 1000 ml Route: IV; Rate: 1 bolus; Site: right forearm; Delivery: Primary tl3 tubing; 18:29 Follow up: IV Status: Completed infusion; IV Intake: 1000ml tl3 17:27 Drug: Zofran 4 mg Route: IVP; Infused Over: 2 mins; Site: right forearm; tl3 18:29 Follow up: Response: No adverse reaction tl3 17:27 Drug: Pepcid 20 mg Route: IVP; Infused Over: 2 mins; Site: right forearm; tl3 18:28 Follow up: Response: No adverse reaction tl3 18:23 Drug: ProTONIX 40 mg Route: IVP; Infused Over: 2 mins; Site: right forearm; tl3 20:24 Follow up: Response: No adverse reaction tl3 20:23 Drug: GI Cocktail without - (Maalox Suspension 30 ml, Lidocaine Liquid 2 % 15 tl3 ml) Route: PO; 20:23 Follow up: Response: Medication administered at discharge. tl3 20:23 Drug: Potassium Effervescent Tablet 50 mEq Route: PO; tl3 20:23 Follow up: Response: No adverse reaction; Medication administered at discharge. tl3 Intake: 18:29 IV: 1000ml; Total: 1000ml. tl3 Outcome: 20:08 Discharge ordered by . alvaro 20:24 Discharged to home ambulatory. tl3 20:24 Condition: stable 20:24 Discharge instructions given to patient, Instructed on discharge instructions, follow up and referral plans. medication usage, Demonstrated understanding of instructions, follow-up care, medications, Prescriptions given X 1. 20:29 Patient left the ED. tl3 Signatures: Dispatcher [employer] EDMitra Greenfield, RN RN Martine Fountain Corey, Lori Mayes cp, RN RN tl3
--- NOTE | 2018-08-23 20:09 | EDPHYS ---
Physician Documentation [facility] Name: Michelle Plasencia Age: 33 yrs Sex: Female : 1985 Arrival Date: 08/23/2018 Time: 16:37 Bed 24 Private MD: None, None ED Physician Heath Mandel HPI: 08/23 17:00 This 33 yrs old Female presents to ER via Ambulatory with complaints of cp Abdominal Pain. 17:00 The patient presents with abdominal pain in the epigastric area. cp 17:00 Onset: The symptoms/episode began/occurred 3 day(s) ago. cp 17:00 The symptoms radiate to back. Associated signs and symptoms: Pertinent positives:. cp 17:00 The symptoms are described as sharp, waxing/waning. cp 17:00 Modifying factors: the symptoms are aggravated by pressure. 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 - Social history:: Smoking status: Patient uses tobacco products, smokes one pack cigarettes per day. Patient uses alcohol, occasionally. - Ebola Screening: : No symptoms or risks identified at this time. ROS: 17:05 Constitutional: Negative for body aches, chills, fever, poor PO intake. cp 17:05 Eyes: Negative for injury, pain, redness, and discharge. cp 17:05 ENT: Negative for drainage from ear(s), ear pain, sore throat, difficulty swallowing, difficulty handling secretions. 17:05 Cardiovascular: Negative for chest pain, edema, palpitations. 17:05 Respiratory: Negative for cough, shortness of breath, wheezing. 17:05 Abdomen/GI: Positive for abdominal pain, nausea, black/tarry stool, of the epigastric area, Negative for vomiting, diarrhea, constipation, anorexia, dysphagia. 17:05 Back: Positive for radiated pain, Negative for injury or acute deformity, decreased range of motion. 17:05 : Negative for urinary symptoms. 17:05 Skin: Negative for cellulitis, rash. 17:05 Neuro: Negative for altered mental status, headache, syncope, near syncope, weakness. 17:05 All other systems are negative. Exam: 17:10 Constitutional: The patient appears in no acute distress, alert, awake, cp non-diaphoretic, non-toxic, well developed, well nourished. 17:10 Head/Face: Normocephalic, atraumatic. Eyes: Pupils equal round and reactive to light, cp extra-ocular motions intact. Lids and lashes normal. Conjunctiva and sclera are non-icteric and not injected. Cornea within normal limits. Periorbital areas with no swelling, redness, or edema. ENT: Nares patent. No nasal discharge, no septal abnormalities noted. Tympanic membranes are normal and external auditory canals are clear. Oropharynx with no redness, swelling, or masses, exudates, or evidence of obstruction, uvula midline. Mucous membranes moist. Chest/axilla: Normal chest wall appearance and motion. Nontender with no deformity. No lesions are appreciated. 17:10 Cardiovascular: Rate: normal, Rhythm: regular, Heart sounds: murmur, not appreciated, Edema: is not appreciated, JVD: is not appreciated. 17:10 Respiratory: the patient does not display signs of respiratory distress, Respirations: normal, no use of accessory muscles, no retractions, no splinting, no tachypnea, labored breathing, is not present, Breath sounds: are clear throughout, no decreased breath sounds, no stridor, no wheezing. 17:10 Abdomen/GI: Inspection: abdomen appears normal, Bowel sounds: active, all quadrants, Palpation: soft, in all quadrants, moderate abdominal tenderness, in the epigastric area, rebound tenderness, is not appreciated, voluntary guarding, is elicited in the epigastric area, Rectal exam: Stool: brown, guaiac negative. 17:10 Back: pain, that is mild, of the mid back area, ROM is normal. 17:10 Skin: cellulitis, is not appreciated, no rash present. 17:10 Neuro: Orientation: to person, place \T\ time. Mentation: lucid, able to follow commands, Cerebellar function: is grossly normal, Motor: moves all fours, strength is normal, Sensation: is normal. Vital Signs: 16:49 BP 135 / 77; Pulse 86; Resp 18; Temp 97.4; Pulse Ox 98% ; Weight 102.06 kg; Height 5 sv ft. 6 in. (167.64 cm); Pain 10/10; 18:30 BP 115 / 82; Pulse 71; Resp 18; Pulse Ox 100% on R/A; tl3 20:24 BP 118 / 89; Pulse 73; Resp 18; Pulse Ox 99% ; tl3 16:49 Body Mass Index 36.32 (102.06 kg, 167.64 cm) sv MDM: 16:45 Patient medically screened. cp 17:30 Differential diagnosis: cholecystitis, Cholelithiasis, gastritis, GI Bleed, cp pancreatitis, Peptic Ulcer Disease, Perf. Duodenal Ulcer, Perf. Gastric Ulcer, Ureterolithiasis, urinary tract infection. 20:07 Data reviewed: vital signs, nurses notes, lab test result(s), radiologic studies, CT cp scan. 20:07 Counseling: I had a detailed discussion with the patient and/or guardian regarding: the cp historical points, exam findings, and any diagnostic results supporting the discharge/admit diagnosis, lab results, radiology results, the need for outpatient follow up, a welt rander, to return to the emergency department if symptoms worsen or persist or if there are any questions or concerns that arise at home. Response to treatment: the patient's symptoms have markedly improved after treatment, VSS. Pain improved with meds, and as a result, I will discharge patient. Special discussion: Based on the patient's Hx, exam, and Dx evaluation, there is no indication for emergent surgery or inpatient Tx. It is understood by the patient/guardian that if the Sx's persist or worsen they need to return immediately for re-evaluation. 08/23 16:58 Order name: Basic Metabolic Panel; Complete Time: 18:17 cp 08/23 18:17 Interpretation: Normal except: K 3.3; CL 108; BUN 6. cp 08/23 16:58 Order name: CBC with Diff; Complete Time: 18:17 cp 08/23 19:53 Interpretation: Normal except: HGB 15.3; MCV 100.3; MARE% 74.6. cp 08/23 16:58 Order name: Creatinine for Radiology; Complete Time: 18:17 cp 08/23 16:58 Order name: Hepatic Function; Complete Time: 18:17 08/23 19:53 Interpretation: Normal except: AST 44; ALT 80; A/G 1.0. cp 08/23 16:58 Order name: Lipase; Complete Time: 18:17 cp 08/23 16:58 Order name: Magnesium; Complete Time: 18:17 cp 08/23 16:58 Order name: PT-INR; Complete Time: 18:17 cp 08/23 16:58 Order name: Ptt, Activated; Complete Time: 18:17 cp 08/23 16:58 Order name: AMMONIA; Complete Time: 18:17 08/23 19:54 Interpretation: EMILIANO 27; Reviewed. 08/23 17:43 Order name: CT Abd/Pelvis - W/Contrast: give oral contrast; Complete Time: 19:58 08/23 19:59 Interpretation: Report reviewed. 08/23 18:40 Order name: Urine Dipstick--Ancillary (enter results); Complete Time: 20:06 08/23 18:40 Order name: Urine --Ancillary (enter results); Complete Time: 20:06 08/23 16:58 Order name: IV Saline Lock; Complete Time: 17:28 08/23 16:58 Order name: Labs collected and sent; Complete Time: 17:28 cp Administered Medications: 17:27 Drug: NS 0.9% 1000 ml Route: IV; Rate: 1 bolus; Site: right forearm; Delivery: Primary tl3 tubing; 18:29 Follow up: IV Status: Completed infusion; IV Intake: 1000ml tl3 17:27 Drug: Zofran 4 mg Route: IVP; Infused Over: 2 mins; Site: right forearm; tl3 18:29 Follow up: Response: No adverse reaction tl3 17:27 Drug: Pepcid 20 mg Route: IVP; Infused Over: 2 mins; Site: right forearm; tl3 18:28 Follow up: Response: No adverse reaction tl3 18:23 Drug: ProTONIX 40 mg Route: IVP; Infused Over: 2 mins; Site: right forearm; tl3 20:24 Follow up: Response: No adverse reaction tl3 20:23 Drug: GI Cocktail without - (Maalox Suspension 30 ml, Lidocaine Liquid 2 % 15 tl3 ml) Route: PO; 20:23 Follow up: Response: Medication administered at discharge. tl3 20:23 Drug: Potassium Effervescent Tablet 50 mEq Route: PO; tl3 20:23 Follow up: Response: No adverse reaction; Medication administered at discharge. tl3 Disposition: 08/23/18 20:08 Discharged to Home. Impression: Epigastric pain. - Condition is Stable. - Discharge Instructions: Gastritis, Adult, Gastroesophageal Reflux Disease, Adult. - Prescriptions for Protonix 40 mg Oral Tablet - take 1 tablet by ORAL route once daily; 30 tablet. Zofran 4 mg Oral Tablet - take 1 tablet by ORAL route every 12 hours As needed; 20 tablet. - Medication Reconciliation Form, Thank You Letter, Antibiotic Education, Prescription Opioid Use form. - Follow up: Jordan Crespo MD; When: 2 - 3 days; Reason: Recheck today's complaints. - Problem is new. - Symptoms have improved. Addendum: 08/25/2018 06:36 Co-signature as Attending Physician, Heath Mandel MD I agree with the assessment and c paris plan of care. Signatures: Dispatcher [employer] EDMitra Greenfield RN RN Heath Wong MD MD cha Page, Corey, PA PA cp Lori Garcia, RN RN tl3 Corrections: (The following items were deleted from the chart) 08/23 20:29 20:08 08/23/2018 20:08 Discharged to Home. Impression: Epigastric pain. Condition is tl3 Stable. Forms are Medication Reconciliation Form, Thank You Letter, Antibiotic Education, Prescription Opioid Use. Follow up: Jordan Crespo; When: 2 - 3 days; Reason: Recheck today's complaints. Problem is new. Symptoms have improved. cp
[2018-08-23] MEDS ORDERED: LIDOCAINE VISCOUS 2% SOLN 15 ML UDC ONE (20:25)
[2018-08-23] MEDS ORDERED: POTASSIUM 25 MEQ EFFERV TAB ONE (20:25)
[2018-08-23] MEDS ORDERED: MAGNE/ALUM HYDROXD 30 ML UCUP ONE (20:25)
[2018-08-23 20:44] VITALS: TEMP 97.4
[2018-08-23 20:45] VITALS: BP 118/89; O2SAT 99
== END 2018-08-23 20:29 | disposition home or self-care (01) ==
LOC: ER 16:34
DX: R10.13 Epigastric pain (principal); F17.210 Nicotine dependence, cigarettes, uncomplicated; Z91.030 Bee allergy status; Z91.040 Latex allergy status; Z91.048 Other nonmedicinal substance allergy status
CPT/HCPCS: 36415; 74177; 80048; 80076; 81003; 81025; 82140; 83690; 83735; 85025; 85610; 85730; 96361; 96374; 96375; 99284; C9113; J2405; J7030; Q9967

== ENCOUNTER 2019-07-28 07:33 | Emergency (ER) | payer SELFPAY ==
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
--- NOTE | 2019-07-28 08:56 | RAD REPORT ---
EXAM DESCRIPTION: RAD - Elbow Right 3 View - 07/28/2019 8:16 am CLINICAL HISTORY: elbow pain FINDINGS: No fracture or dislocation is seen. No bone or joint abnormality is displayed
[2019-07-28 09:10] VITALS: BP 112/49; TEMP 97.9; O2SAT 98
== END 2019-07-28 08:52 | disposition home or self-care (01) ==
LOC: ER 07:33
DX: S00.90XA Unspecified superficial injury of unspecified part of head, initial encounter (principal); S20.229A Contusion of unspecified back wall of thorax, initial encounter; S50.01XA Contusion of right elbow, initial encounter; Y04.2XXA Assault by strike against or bumped into by another person, initial encounter; Y93.9 Activity, unspecified; Y92.9 Unspecified place or not applicable; Z91.030 Bee allergy status; Z91.040 Latex allergy status; Z91.048 Other nonmedicinal substance allergy status; F17.210 Nicotine dependence, cigarettes, uncomplicated
CPT/HCPCS: 70450; 71250; 72125; 99284

== ENCOUNTER 2020-08-07 22:14 | Emergency (ER) | payer SELFPAY ==
[2020-08-07 23:17] LABS: Absolute Lymphocytes (CBC) 1.6 K/uL (0.7-4.9); Basophils % 0.6 % (0-1.3); Hematocrit 46.2 % (36.0-45.0); Lymphocytes % 26.9 % (15.3-44.8); MPV 9.1 fL (7.6-11.3); RBC Red Blood Cell Count 4.58 M/uL (3.86-4.86)
[2020-08-07 23:21] LABS: Protime INR 0.95
[2020-08-07 23:21] LABS: Urine Blood NEGATIVE (NEG); Urine Glucose NEGATIVE (NEG); Urine Protein NEGATIVE (NEG)
[2020-08-07 23:27] LABS: Barbiturates NEGATIVE (NEGATIVE); Benzodiazepines NEGATIVE (NEGATIVE); Cocaine NEGATIVE (NEGATIVE); METHAMPHETAM NEGATIVE (NEGATIVE); Methadone NEGATIVE (NEGATIVE); Opiates NEGATIVE (NEGATIVE); Phencyclidine NEGATIVE (NEGATIVE); THC Cannibis POSITIVE (NEGATIVE)
[2020-08-07 23:41] LABS: ALT/SGPT 112 U/L (12-78); AST/SGOT 60 U/L (15-37); Albumin 3.8 g/dL (3.4-5.0); Alkaline Phosphatase 102 U/L (45-117); BUN Blood Urea Nitrogen 5 mg/dL (7-18); Bicarbonate 23 mmol/L (21-32); Bilirubin Direct 0.1 mg/dL (0-0.2); Bilirubin Total 0.3 mg/dL (0.2-1.0); Glucose Level 117 mg/dL (74-106); Potassium 3.4 mmol/L (3.5-5.1); Sodium Level 142 mmol/L (136-145)
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
[2020-08-08 00:43] VITALS: TEMP 98.6; O2SAT 100
[2020-08-08 00:44] VITALS: BP 125/71
== END 2020-08-08 00:23 | disposition home or self-care (01) ==
LOC: ER 22:14
DX: F10.129 Alcohol abuse with intoxication, unspecified (principal); F41.9 Anxiety disorder, unspecified; F17.210 Nicotine dependence, cigarettes, uncomplicated; Z91.030 Bee allergy status; Z91.040 Latex allergy status; Z91.048 Other nonmedicinal substance allergy status
CPT/HCPCS: 36415; 80048; 80076; 80307; 80320; 80329; 81003; 81025; 85025; 85610; 85730; 93005; 99283

== ENCOUNTER 2020-12-20 06:06 | Emergency (ER) | payer SELFPAY ==
[2012-03-18 07:29] VITALS: BP 124/63
[2020-12-20 06:54] LABS: Absolute Lymphocytes (CBC) 1.8 K/uL (0.7-4.9); Basophils % 0.6 % (0-1.3); Hematocrit 49.9 % (36.0-45.0); Lymphocytes % 18.5 % (15.3-44.8); MPV 9.2 fL (7.6-11.3); RBC Red Blood Cell Count 4.88 M/uL (3.86-4.86)
[2020-12-20] MEDS ORDERED: FENTANYL CITR 100 MCG/2 ML ONE (07:05)
[2020-12-20 07:09] LABS: BUN Blood Urea Nitrogen 7 mg/dL (7-18); Bicarbonate 25 mmol/L (21-32); Glucose Level 107 mg/dL (74-106); Sodium Level 141 mmol/L (136-145)
--- NOTE | 2020-12-20 08:11 | RAD REPORT ---
EXAM DESCRIPTION: CT - [id number] - 12/20/2020 7:38 am CLINICAL HISTORY: Trauma, head and neck injury. DEFORMITY COMPARISON: Head C Spine Mpr Wo Con dated 07/28/2019 TECHNIQUE: Axial 5 mm thick images of the head were obtained. Axial 2 mm thick images of the cervical spine were obtained with sagittal and coronal reconstruction images generated and reviewed. All CT scans are performed using dose optimization technique as appropriate and may include automated exposure control or mA/KV adjustment according to patient size. FINDINGS: CT HEAD WITHOUT CONTRAST: No acute hemorrhage, hydrocephalus or extra-axial collection is identified.No areas of brain edema or midline shift. The paranasal sinuses and mastoids are clear.The calvarium is intact. CT CERVICAL SPINE WITHOUT CONTRAST: No fracture or subluxation.No prevertebral soft tissues swelling is identified. IMPRESSION: No acute intracranial or cervical spine findings.
--- NOTE | 2020-12-20 08:14 | RAD REPORT ---
EXAM DESCRIPTION: CT - FC CLINICAL HISTORY: DEFORMITY Trauma, facial pain COMPARISON: No comparisons TECHNIQUE: Axial 2 mm thick images of the face were obtained with sagittal and coronal reconstructio n images. All CT scans are performed using dose optimization technique as appropriate and may include automated exposure control or mA/KV adjustment according to patient size. FINDINGS: No acute facial bone fracture is seen.The mandible is intact. There is a large amount of s oft tissue swelling along the left aspect of the face and mandible. The globes and orbital contents are grossly unremarkable.The paranasal sinuses and mastoids are clear . IMPRESSION: Negative for facial bone fracture. There is a large amount of soft tissue swelling/ soft tissue density along the left aspect of the fac e and mandible. Advise direct clinical assessment of this region.
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
[2020-12-20] MEDS ORDERED: CEFAZOLIN SODIUM 1 GM/VIAL ONE (08:57)
[2020-12-20] MEDS ORDERED: CEPHALEXIN 250 MG CAP ONE (08:58)
== END 2020-12-20 09:07 | disposition home or self-care (01) ==
LOC: ER 06:06
DX: S01.81XA Laceration without foreign body of other part of head, initial encounter (principal); F10.129 Alcohol abuse with intoxication, unspecified; F17.210 Nicotine dependence, cigarettes, uncomplicated; Y04.2XXA Assault by strike against or bumped into by another person, initial encounter; Y93.89 Activity, other specified; Y92.9 Unspecified place or not applicable; Z91.030 Bee allergy status; Z91.040 Latex allergy status; Z91.048 Other nonmedicinal substance allergy status; F41.8 Other specified anxiety disorders
CPT/HCPCS: 36415; 70450; 70487; 70498; 72125; 80048; 80320; 85025; 96374; 96375; 99284; J0690; J3010; Q9967

== ENCOUNTER 2022-09-17 17:08 | Emergency (ER) | payer OTHER, SELFPAY ==
--- OUTSIDE RECORDS SUMMARY | 2022-09-17 17:11 | XMS REPORT | Continuity of Care Document ---
:1985 Author Organization [facility] t Address [address] [place] [address] Care Team Providers Name Role Phone Pcp, Patient Does Not Have A Primary Care Physician [phone] KATHI TAYLOR Attending Clinician Unavailable Kathi Falcon Attending Clinician Problems This patient has no known problems. Allergies, Adverse Reactions, Alerts Allergy Allergy Status Severity Reaction(s) Onset Inactive Treating Comm ents Source Name Type Date Date Clinician NO KNOWN Drug Active [facility]ERGIE Class [facility] Social History Social Habit Start Date Stop Date Quantity Comments Source Exposure to Not sure [facility] SARS-CoV-2 (event) [facility] Sex Assigned At [birth year] [facility] 00:00:00 00:00:00 [facility] Smoking Status Start Date Stop Date Source Unknown if ever smoked [facility] Medications Ordered Filled Start Stop Current Ordering Indication Dosage Frequency Signature Comments Components Source Medication Medication Date Date Medication? Clinician (SIG) Name Name predniSONE 2018-0 Yes 40mg Take 2 Unive rs 20 mg 9-17 tablets by ity of tablet 00:00: mouth [place] 00 daily. [facility] Branch Vital Signs Vital Name Observation Time Observation Value Comments Source Systolic blood 2021-12-25 23:57:00 117 mm[Hg] Univer sity of pressure [facility] Diastolic blood 2021-12-25 23:57:00 62 mm[Hg] Unive rsity of pressure [facility] Heart rate 2021-12-25 23:57:00 89 /min [facility] Body temperature 2021-12-25 23:57:00 37 [facility] Respiratory rate 2021-12-25 23:57:00 22 /min [facility] Body weight 2021-12-25 23:57:00 87.045 kg [facility] BMI 2021-12-25 23:57:00 30.06 kg/m2 [facility] Oxygen saturation in 2021-12-25 23:57:00 100 /min [facility] Arterial blood by [facility] Pulse oximetry Branch Procedures Procedure Date / Time Performed Performing Clinician Sourc e CONSENT/REFUSAL FOR 2021-12-25 23:52:42 Doctor Unassigned, No Un [facility] DIAGNOSIS AND Name [facility] TREATMENT Encounters Start End Encounter Admission Attending Care Care Encounter Source Date/Time Date/Time Type Type Clinicians Facility Department ID 2021-12-25 2021-12-25 Emergency X FARTUN TAYLOR ERT [id number] [facility] 17:58:00 20:01:00 KATHI tavarez [facility] 2021-12-25 2021-12-25 Emergency FARTUN Taylor [id number] [facility] 17:58:00 20:01:00 Kathi PRATT [id number] i [facility] [id number] [facility] [id number] [facility] 084 Branch Results This patient has no known results.
--- NOTE | 2022-09-17 18:30 | RAD REPORT ---
EXAM DESCRIPTION: RAD - Ankle Right 3 View - 09/17/2022 6:20 pm CLINICAL HISTORY: Right ankle pain FINDINGS: No fracture or dislocation is seen. Large calcaneal spurs
--- NOTE | 2022-09-17 18:48 | EDPHYS ---
Physician Documentation [facility] Name: Michelle Plasencia Age: 37 yrs Sex: Female : 1985 Arrival Date: 09/17/2022 Time: 17:10 Bed 10 Private MD: ED Physician Heath Mandel HPI: 09/17 17:55 This 37 yrs old Female presents to ER via Ambulatory with complaints of Ankle Injury. cp 17:55 The patient presents with an injury, pain, that is acute. The complaints affect the cp right ankle. Onset: The symptoms/episode began/occurred yesterday. 17:55 Context: while walking down stairs, missed stepped and ankle and foot rolled inward. cp 17:55 Associated signs and symptoms: The patient has no apparent associated signs or cp symptoms. Modifying factors: the symptoms are aggravated by weight bearing, movement. Historical: - Allergies: 17:25 adhesive tape; hb 17:25 bandaids; hb 17:25 Bees; hb 17:25 Latex, Natural Rubber; hb - Home Meds: 17:25 aspirin 81 mg Oral TbEC 1 tab once daily [Active]; hb - PMHx: 17:25 abscess-sepsis; Anxiety; depression/suicidal ideation; heart flutter; Heart Murmur; hb Suicide attempt overdose on asprin and wine 08/2016; suicide attempt will pill overdose, wine, then wanted to sit in the car on in garage 02/2018; ROS: 18:00 MS/extremity: Positive for pain, swelling, tenderness, of the right ankle, painful ROM, cp Negative for deformity. 18:00 Constitutional: Negative for fever. cp 18:00 Neck: Negative for pain with movement, pain at rest, stiffness. 18:00 Cardiovascular: Negative for chest pain. 18:00 Respiratory: Negative for cough, shortness of breath, wheezing. 18:00 Back: Negative for pain at rest, pain with movement. 18:00 All other systems are negative. Exam: 18:05 Constitutional: The patient appears in no acute distress, alert, awake, well developed, cp well nourished, uncomfortable. 18:05 Head/Face: Normocephalic, atraumatic. cp 18:05 Neck: ROM/movement: is normal, is supple, without pain, no range of motions limitations. 18:05 Chest/axilla: Inspection: normal. 18:05 Cardiovascular: Rate: normal. 18:05 Respiratory: the patient does not display signs of respiratory distress, Respirations: normal, no use of accessory muscles, no retractions. 18:05 Abdomen/GI: Exam negative for discomfort, distension, guarding, Inspection: abdomen appears normal. 18:05 Back: pain, is absent, ROM is normal. 18:05 Musculoskeletal/extremity: Extremities: grossly normal except: noted in the lateral malleolus of right ankle: pain, swelling, tenderness, ROM: limited passive range of motion due to pain, in the right ankle, Pulses: noted to be 2+ in the right dorsalis pedis artery, Achilles tendon intact, tenderness noted proximal right foot, no tenderness noted proximal right fibula. Vital Signs: 17:24 BP 135 / 74; Pulse 94; Resp 16; Temp 98.3; Pulse Ox 100% on R/A; Weight 90.72 kg; hb Height 5 ft. 6 in. (167.64 cm); Pain 10/10; 20:26 BP 132 / 72; Pulse 88; Resp 16; Pulse Ox 100% ; ll3 17:24 Body Mass Index 32.28 (90.72 kg, 167.64 cm) hb Procedures: 19:15 Splinting: Splint applied to right ankle using Orthoglass splint, stirrup type splint. cp applied by tech. Examined by me, post splint application: neurovascular intact, Patient tolerated well. MDM: 17:29 Patient medically screened. cp 18:00 Differential diagnosis: fracture, sprain, dislocation, Achilles tendon rupture. cp 18:46 Data reviewed: vital signs, nurses notes, radiologic studies, plain films. cp 18:46 Test interpretation: by ED physician or midlevel provider: plain radiologic studies. cp Counseling: I had a detailed discussion with the patient and/or guardian regarding: the historical points, exam findings, and any diagnostic results supporting the discharge/admit diagnosis, radiology results, the need for outpatient follow up, a orthopedic surgeon, to return to the emergency department if symptoms worsen or persist or if there are any questions or concerns that arise at home. Response to treatment: the patient's symptoms have mildly improved after treatment, and as a result, I will discharge patient. 09/17 17:26 Order name: Ankle Right 3 View XRAY; Complete Time: 18:33 hb 09/17 18:33 Interpretation: Report reviewed. cp 09/17 18:34 Order name: Kyle Wrap; Complete Time: 20:00 cp 09/17 18:34 Order name: Splint: orthoglass stirrup; Complete Time: 20:00 cp 09/17 18:34 Order name: Crutches; Complete Time: 20:24 cp Administered Medications: 19:38 Drug: Ibuprofen 800 mg Route: PO; ll3 19:38 Drug: Tylenol 1000 mg Route: PO; ll3 Disposition Summary: 09/17/22 18:47 Discharge Ordered Location: Home cp Problem: new cp Symptoms: have improved cp Condition: Stable cp Diagnosis - Sprain of ankle - right cp Followup: cp - With: Nacho Valencia MD - When: 1 week - Reason: Recheck today's complaints Discharge Instructions: - Discharge Summary Sheet cp - Ankle Sprain cp - RICE Therapy for Routine Care of Injuries cp Forms: - Medication Reconciliation Form cp - Thank You Letter cp - Antibiotic Education cp - Prescription Opioid Use cp Prescriptions: - Ibuprofen 800 mg Oral Tablet - take 1 tablet by ORAL route every 8 hours As needed take with food; 30 tablet; cp Refills: 0, Product Selection Permitted Signatures: Dispatcher [employer] EDHeath Oliveros PA PA cp Sunita Mohamud, RN RN Kelsey Lechuga RN RN ll3
--- NOTE | 2022-09-17 18:48 | ER ---
Nurse's Notes [facility] Name: Michelle Plasencia Age: 37 yrs Sex: Female : 1985 Arrival Date: 09/17/2022 Time: 17:10 Bed 10 Private MD: Diagnosis: Sprain of ankle-right Presentation: 09/17 17:24 Chief complaint: Missed bottom step and rolled ankle last night, c/o right ankle pain hb 10/10. Coronavirus screen: At this time, the client does not indicate any symptoms associated with coronavirus-19. Ebola Screen: No symptoms or risks identified at this time. Initial Sepsis Screen: Does the patient meet any 2 criteria? No. Patient's initial sepsis screen is negative. Does the patient have a suspected source of infection? No. Patient's initial sepsis screen is negative. Risk Assessment: Do you want to hurt yourself or someone else? Patient reports no desire to harm self or others. Onset of symptoms was September 16, 2022. 17:24 Method Of Arrival: Ambulatory hb 17:24 Acuity: OFELIA 4 hb Historical: - Allergies: 17:25 adhesive tape; hb 17:25 bandaids; hb 17:25 Bees; hb 17:25 Latex, Natural Rubber; hb - Home Meds: 17:25 aspirin 81 mg Oral TbEC 1 tab once daily [Active]; hb - PMHx: 17:25 abscess-sepsis; Anxiety; depression/suicidal ideation; heart flutter; Heart Murmur; hb Suicide attempt overdose on asprin and wine 08/2016; suicide attempt will pill overdose, wine, then wanted to sit in the car on in garage 02/2018; Screenin:24 Abuse screen: Denies threats or abuse. Denies injuries from another. Nutritional ll3 screening: No deficits noted. Tuberculosis screening: No symptoms or risk factors identified. Fall Risk Fall in past 12 months (25 points). No secondary diagnosis (0 pts). No IV (0 pts). Ambulatory Aid- Crutches/Cane/Walker (15 pts). Gait- Impaired (20 pts.). Mental Status- Oriented to own ability (0 pts). Total Jackson Fall Scale indicates High Risk Score (45 or more points). Fall prevention measures have been instituted. Side Rails Up X 2 Placed Close to Nursing Station Family Present and informed to notify staff if the need to leave the bedside As available patient and family educated on Fall Prevention Program and Strategies. Vital Signs: 17:24 BP 135 / 74; Pulse 94; Resp 16; Temp 98.3; Pulse Ox 100% on R/A; Weight 90.72 kg; hb Height 5 ft. 6 in. (167.64 cm); Pain 10/10; 20:26 BP 132 / 72; Pulse 88; Resp 16; Pulse Ox 100% ; ll3 17:24 Body Mass Index 32.28 (90.72 kg, 167.64 cm) hb ED Course: 17:10 Patient arrived in ED. as 17:13 Heath Shen PA is PHCP. cp 17:13 Heath Mandel MD is Attending Physician. cp 17:25 Triage completed. hb 17:25 Arm band placed on. hb 18:22 Ankle Right 3 View XRAY In Process Unspecified. EDMS 18:47 Nacho Valencia MD is Referral Physician. cp 19:26 Janice Knight is Primary Nurse. tw5 20:24 No provider procedures requiring assistance completed. Patient did not have IV access ll3 during this emergency room visit. 20:25 Patient has correct armband on for positive identification. Bed in low position. Call ll3 light in reach. Side rails up X 1. Adult w/ patient. Administered Medications: 19:38 Drug: Ibuprofen 800 mg Route: PO; ll3 19:38 Drug: Tylenol 1000 mg Route: PO; ll3 Medication: 20:25 VIS not applicable for this client. ll3 Outcome: 18:47 Discharge ordered by . cp 20:24 Discharged to home with crutches, with significant other. ll3 20:24 Condition: stable 20:24 Discharge instructions given to patient, family, Instructed on discharge instructions, follow up and referral plans. Demonstrated understanding of instructions, follow-up care. 20:26 Patient left the ED. ll3 Signatures: Dispatcher [employer] EDMS Mary Jane Horn as Heath Shen PA PA cp Sunita Mohamud, RN RN hb Janice Knight tw5 Kelsey Lechuga RN RN ll3
[2022-09-17] MEDS ORDERED: ACETAMINOPHEN 500 MG TAB ONE (19:33)
[2022-09-17] MEDS ORDERED: IBUPROFEN 400 MG TAB ONE (19:34)
[2022-09-17 20:30] VITALS: TEMP 98.3; O2SAT 100
[2022-09-17 20:31] VITALS: BP 132/72
== END 2022-09-17 20:26 | disposition home or self-care (01) ==
LOC: ER 17:08
DX: S93.401A Sprain of unspecified ligament of right ankle, initial encounter (principal)
CPT/HCPCS: 99283

== ENCOUNTER 2024-10-21 11:11 | Emergency (ER) | payer OTHER ==
--- OUTSIDE RECORDS SUMMARY | 2024-10-21 11:13 | XMS REPORT | Continuity of Care Document ---
Author Name Unknown Address [address] [facility] [address] [place] [address] [facility] thconnect Address [address] [facility] [address] [place] [address] Care Team Providers Care Ski Tow Operator Name Role Phone PCP, PATIENT DOES NOT HAVE A Primary Care Physic chuyita Unavailable MARITA PHILLIPS Attending Clinician Unavailable Marita Phillips NP Attending Clinician [phone] KATHI TAYLOR Attending Clinician Unavailable Kathi Falcon Attending Clinician [phone] MARITA PHILLIPS Admitting Clinician Unavailable Payers Payer Name Policy Type Policy Number Effective Date Expirati on Date Source [employer] [id number] 2022 00:00:00 Allergies, Adverse Reactions, Alerts Allergy Name Allergy Type Status Severity Reaction(s) Onset Date Inactive Date Treating Clinician Comments Source NO KNOWN ALLERGIE S Drug Class Active [facility] Social History Social Habit Start Date Stop Date Quantity Comments Source Exposure to SARS-CoV-2 (event) 2023-01-13 00:00:00 2023-01-23 17:29:00 Not sure [facility] Sex Assigned At 1985 00:00:00 1985 00:00:00 [facility] Smoking Status Start Date Stop Date Source Tobacco smoking consumption unknown [facility] Medications Ordered Medication Name Filled Medication Name Start Date Stop Date Current Medication? Ordering Clinician Indication Dosage Frequency Signature (SIG) Comments Components Source HYDROcodone -acetaminop hen (NORCO) 10-325 mg tablet 1 tablet 01-23 22:00: 00 01-23 21:56 :00 No 1{tbl} 1 tablet, Oral, ONCE, 1 dose, On 01/23/23 at 1700, Routine [facility] acetaminoph en-codeine (TYLENOL-CO DEINE #3) 300-30 mg tablet 01-23 00:00: 00 Yes [id number] 1{tbl} Take 1 tablet by mouth every 4 (four) hours as needed for Pain (scale 7-10). Indication s: acute pain [facility] ibuprofen 600 mg tablet 01-23 00:00: 00 Yes [id number] 600mg Take 1 tablet by mouth every 6 (six) hours as needed for Pain (scale 4-6) or Pain (scale 1-3). [facility] predniSONE 20 mg tablet 07-10 00:00: 00 Yes 40mg Take 2 tablets by mouth daily. [facility] Vital Signs Vital Name Observation Time Observation Value Comments S ource Systolic blood pressure 2023-01-23 22:29:00 102 mm[Hg] [facility] Diastolic blood pressure 2023-01-23 22:29:00 75 mm[Hg] [facility] Heart rate 2023-01-23 22:29:00 101 /min [facility] Respiratory rate 2023-01-23 22:29:00 16 /min [facility] Oxygen saturation in Arterial blood by Pulse oximetry 2023-01-23 22:29:00 97 /min [facility] Body temperature 2023-01-23 19:56:00 37.06 Maria Esther [facility] Body height 2023-01-23 19:56:00 172.7 cm [facility] Body weight 2023-01-23 19:56:00 81.647 kg [facility] BMI 2023-01-23 19:56:00 27.37 kg/m2 [facility] Systolic blood pressure 2021-12-25 23:57:00 117 mm[Hg] [facility] Diastolic blood pressure 2021-12-25 23:57:00 62 mm[Hg] [facility] Heart rate 2021-12-25 23:57:00 89 /min [facility] Body temperature 2021-12-25 23:57:00 37 Maria Esther [facility] Respiratory rate 2021-12-25 23:57:00 22 /min [facility] Body weight 2021-12-25 23:57:00 87.045 kg [facility] BMI 2021-12-25 23:57:00 30.06 kg/m2 [facility] Oxygen saturation in Arterial blood by Pulse oximetry 2021-12-25 23:57:00 100 /min [employer] [facility] Procedures Procedure Date / Time Performed Performing Clinician Source ED SPLINT APPLICATION 2023-01-23 21:53:15 Marni Phillips [facility] POCT TEST 2023-01-23 21:08:00 Marita Phillips [facility] CONSENT/REFUSAL FOR DIAGNOSIS AND TREATMENT 2023-01-23 19:46:29 Doctor Unassigned, [place] [facility] CONSENT/REFUSAL FOR DIAGNOSIS AND TREATMENT 2021-12-25 23:52:42 Doctor Unassigned, [place] [facility] Encounters Start Date/Time End Date/Time Encounter Type Admission Type Attending Clinicians Care Facility Care Department Encounter ID Source 2023-05-19 13:09:03 2023-05-19 13:09:03 Outpatient [facility] [id number] Alfa Saenz 2023-05-18 17:29:59 2023-05-18 17:29:59 Outpatient [facility] [id number] Alfa Saenz 2023-01-23 14:57:00 2023-01-23 17:35:00 Emergency X MARITA PHILLIPS [facility] ERT [id number] [facility] 2023-01-23 14:57:00 2023-01-23 17:35:00 Emergency Marita Phillips [facility] [id number] [facility] 2021-12-25 17:58:00 2021-12-25 20:01:00 Emergency X KATHI TAYLOR [facility] ERT [id number] [facility] 2021-12-25 17:58:00 2021-12-25 20:01:00 Emergency Kathi Taylor S [facility] [id number] [facility] Results Test Description Test Time Test Comments Results Result Co mments Source [facility]
[2024-10-21] MEDS ORDERED: ONDANSETRON 4 MG/2 ML VIAL ONE (11:19)
[2024-10-21] MEDS ORDERED: NA CHLORIDE 0.9% 1,000 ML ONE (11:19)
[2024-10-21 11:39] LABS: Absolute Eosinophils 0.1 K/uL (0-0.5); Absolute Lymphocytes (CBC) 1.2 K/uL (0.7-4.9); Absolute Monocytes 0.4 K/uL (0.1-1.3); Absolute Neutrophil 5.3 K/uL (1.8-8.0); Basophils % 0.7 % (0-1.3); Eosinophils % 1.2 % (0-4.4); Hematocrit 46.2 % (36.0-45.0); Hemoglobin 15.4 g/dL (12.0-15.0); Lymphocytes % 16.6 % (15.3-44.8); MCH 33.5 pg (27.0-35.0); MCHC 33.3 g/dL (32.0-36.0); MCV 100.8 fL (80-100); MPV 8.2 fL (7.6-11.3); Monocytes % 5.8 % (3.3-12.3); Neutrophils % 75.7 % (41.7-73.7); Platelets 254 thou/uL (152-406); RBC Red Blood Cell Count 4.59 M/uL (3.86-4.86); Red Cell Distribution Width 11.9 % (12.1-15.2)
[2024-10-21 12:02] LABS: SARS-CoV-2 Antigen CONTROL BLUE LINE VIS/BG OK; SARS-CoV-2 Antigen Rapid Res Negative (Negative)
[2024-10-21 12:07] LABS: Albumin 3.2 g/dL (3.4-5.0); Albumin/Globulin Ratio 0.8 (1.1-1.8); Anion Gap 7.5 mEq/L (5.0-15.0); Bilirubin Total 0.4 mg/dL (0.2-1.0); Globulin 3.8 g/dL (2.3-3.5); Potassium 3.5 mEq/L (3.5-5.1)
[2024-10-21 12:29] LABS: Specific Gravity 1.029 (1.005-1.030)
[2024-10-21 12:33] LABS: Sqamous Epithelial <5 /HPF (None Seen); Transitional Epithelial <5 /HPF (None Seen); Urine Bacteria None Seen /HPF (<20); Urine Culture Reflex Order REFLEXED; Urine Micro Reflex YN NO BILL MICROSCOPIC; Urine RBC >50 /HPF (None Seen)
--- NOTE | 2024-10-21 12:41 | RAD REPORT ---
EXAMINATION: CT ABDOMEN AND PELVIS WITH CONTRAST CLINICAL INDICATION: Female, 39 years old.n/v;Abd pain TECHNIQUE: CT abdomen and pelvis was performed, after the administration of IV contrast, as per [facility] protocol. Axial, sagittal and coronal reconstructions were obtained. One or more of the following dose reduction techniques were used: Automated exposure control, adjustment of the mA and/o r kV according to patient size, and/or iterative reconstruction. Unless otherwise specified, incidental findings do not require dedicated imaging follow-up. [id number]. COMPARISON: 08/23/2018 FINDINGS: LOWER CHEST: Mild nodularity in the lateral aspect of the right lower lobe.No significant pericardial effusion. Mild circumferential thickening of the distal esophagus which could reflect esophagitis. UPPER GI: No significant abnormality. LIVER: No significant focal abnormality. GALLBLADDER/BILE DUCTS: No biliary ductal dilatation.? PANCREAS: No mass, ductal dilation, or jules-pancreatic fluid. SPLEEN: Unremarkable. ADRENALS: No adrenal masses. KIDNEYS AND URETERS: No hydronephrosis. ABDOMINAL AORTA AND OTHER VESSELS: Normal caliber aorta and IVC. PERITONEUM: No abnormal free fluid. No free air. LYMPH NODES: No pathologic lymphadenopathy. ABDOMINAL WALL: Unremarkable SMALL BOWEL/COLON: Small bowel has normal course and caliber. No colonic wall thickening or pericolon ic inflammatory changes.Appendix absent. URINARY BLADDER: Underdistended but grossly unremarkable. REPRODUCTIVE ORGANS: No pathologic process. MUSCULOSKELETAL: ADDITIONAL FINDINGS: None. IMPRESSION: No acute or significant abnormalities seen in the abdomen or pelvis.
[2024-10-21 12:48] LABS: Barbiturates NEGATIVE (NEGATIVE); Benzodiazepines NEGATIVE (NEGATIVE); Cocaine POSITIVE (NEGATIVE); METHAMPHETAM NEGATIVE (NEGATIVE); Methadone NEGATIVE (NEGATIVE); Opiates NEGATIVE (NEGATIVE); Phencyclidine NEGATIVE (NEGATIVE); THC Cannibis POSITIVE (NEGATIVE)
--- NOTE | 2024-10-21 14:14 | EDPHYS ---
Physician Documentation [facility] Name: Michelle Plasencia Age: 39 yrs Sex: Female : 1985 Arrival Date: 10/21/2024 Time: 11:11 Bed 16 Private MD: ED Physician Noe Springer HPI: 10/21 11:16 This 39 yrs old Female presents to ER via Unassigned with complaints of nausea, sb4 vomiting, dizziness. 11:17 The patient presents to the emergency department with nausea, vomiting, abdominal pain. sb4 Onset: The symptoms/episode began/occurred 5 day(s) ago. Possible causes: unknown. malaise, fever, cough, chills, nausea, vomiting x 5 days. tried to go to work today, threw up, felt like she was going to pass out, called EMS. Historical: - Allergies: 11:19 adhesive tape; hb 11:19 Latex; hb 11:19 bandaids; hb - PMHx: 11:19 abscess-sepsis; Anxiety; depression/suicidal ideation; heart flutter; Heart Murmur; hb Suicide attempt overdose on asprin and wine 08/2016; suicide attempt will pill overdose; - PSHx: 11:19 Appendectomy; section; hb - Immunization history:: Adult Immunizations up to date. - Infectious Disease History:: Denies. - Social history:: Smoking status: . ROS: 11:17 Cardiovascular: Negative for chest pain, palpitations, and edema, sb4 11:17 Constitutional: Positive for body aches, chills, fatigue, fever, malaise, 11:17 Respiratory: Positive for cough, 11:17 Abdomen/GI: Positive for abdominal pain, nausea and vomiting, 11:17 All other systems are negative, Exam: 11:17 Constitutional: This is a well developed, well nourished patient who is awake, alert, sb4 and in no acute distress. Head/Face: Normocephalic, atraumatic. Eyes: Extra-ocular motions intact. Periorbital areas with no swelling, redness, or edema. ENT: Mucous membranes moist. Cardiovascular: Regular rate and rhythm with a normal S1 and S2. Respiratory: No increased work of breathing, no retractions or nasal flaring. Abdomen/GI: Soft, non-tender, no distension. Skin: Warm, dry with normal turgor. Normal color with no rashes, no lesions, and no evidence of cellulitis. Vital Signs: 11:17 BP 121 / 89; Pulse 65; Resp 16; Temp 98.2(O); Pulse Ox 98% on R/A; Pain 5/10; hb 12:15 BP 137 / 66; Pulse 76; Resp 16; Pulse Ox 99% on R/A; hb 11:17 Pain Scale: Adult hb MDM: 11:14 Medical Screening Exam initiated sb4 14:16 Data reviewed: vital signs, nurses notes, EMS record, lab test result(s), radiologic sb4 studies, and as a result, I will discharge patient. Counseling: I had a detailed discussion with the patient and/or guardian regarding the historical points, exam findings, and any diagnostic results supporting the discharge/admit diagnosis, the presence of at least one elevated blood pressure reading (>120/80) during this emergency department visit, lab results, radiology results, the need for outpatient follow up, for definitive care, to return to the emergency department if symptoms worsen or persist or if there are any questions or concerns that arise at home. 10/21 11:14 Order name: CBC with Diff; Complete Time: 11:43 sb4 10/21 11:14 Order name: CMP; Complete Time: 12:08 sb4 10/21 11:14 Order name: Lipase; Complete Time: 12:08 sb4 10/21 11:14 Order name: Test, Urine; Complete Time: 12:30 sb4 10/21 11:14 Order name: SARS RAPID; Complete Time: 12:04 sb4 10/21 11:14 Order name: Flu; Complete Time: 12:46 sb4 10/21 11:15 Order name: ETOH Level; Complete Time: 11:53 sb4 10/21 11:15 Order name: UDS; Complete Time: 12:54 sb4 10/21 12:25 Order name: Urine Microscopic Only; Complete Time: 12:46 EDMS 10/21 12:36 Order name: Urine Culture EDAK 10/21 11:14 Order name: CT Abd/Pelvis - IV Contrast Only; Complete Time: 12:46 sb4 10/21 11:14 Order name: IV Saline Lock; Complete Time: 11:34 sb4 10/21 11:14 Order name: Labs collected and sent; Complete Time: 11:34 sb4 10/21 12:46 Order name: PO challenge; Complete Time: 14:45 sb4 Administered Medications: 11:30 Drug: Ondansetron IVP 4 mg IVP once; over 2 minutes Route: IVP; Site: left antecubital; hb 14:45 Follow up: Response: No adverse reaction hb 11:30 Drug: NS 0.9% IV 1000 ml IV at 1 bolus Per protocol; to be given as a bolus over 60 hb minutes Route: IV; Rate: 1 bolus; Site: left antecubital; 12:29 Follow up: Response: No adverse reaction; IV Status: Completed infusion hb Disposition: 19:33 Co-signature as Attending Physician, Noe Springer MD I reviewed the patient's care rn provided by the Advanced Practice Provider and agree with the diagnosis and treatment plan. Disposition Summary: 10/21/24 14:13 Discharge Ordered Notes: Location: Home sb4 Problem: new sb4 Symptoms: have improved sb4 Condition: Stable sb4 Diagnosis - Viral infection, unspecified - gastroenteritis sb4 Followup: sb4 - With: Emergency Department - When: As needed - Reason: Trouble breathing, Worsening of condition Discharge Instructions: - Discharge Summary Sheet sb4 - Viral Gastroenteritis, Adult sb4 - Viral Illness, Adult sb4 Forms: - Work release form sb4 - Patient Portal Instructions sb4 - Leadership Thank You Letter sb4 Prescriptions: - dicyclomine 10 mg Oral capsule - take 1 capsule ORAL route 3 times per day PRN abdominal cramping/pain; 20 sb4 capsule; Refills: 0, Product Selection Permitted - ondansetron 8 mg Oral Tablet,disintegrating - take 1 tablet ORAL route every 8 hours; 10 tablet; Refills: 0, Product sb4 Selection Permitted Signatures: Dispatcher [employer] Noe Eddy MD MD rn Baxter, Heather, RN RN hb Brown, Sophia, PA-C PA-C sb4 Corrections: (The following items were deleted from the chart) 12:25 11:15 Urinalysis+U.LAB.BRZ ordered. YANETAK CAMRYN
--- NOTE | 2024-10-21 14:14 | ER ---
Nurse's Notes [facility] Name: Michelle Plasencia Age: 39 yrs Sex: Female : 1985 Arrival Date: 10/21/2024 Time: 11:11 Bed 16 Private MD: Diagnosis: Viral infection, unspecified-gastroenteritis Presentation: 10/21 11:17 Chief complaint: EMS states: Nausea and dizziness x 5 days, near syncopal episode after hb vomit x 1 today. Coronavirus screen: At this time, the client does not indicate any symptoms associated with coronavirus-19. Ebola Screen: No symptoms or risks identified at this time. Initial Sepsis Screen: Does the patient meet any 2 criteria? No. Patient's initial sepsis screen is negative. Does the patient have a suspected source of infection? No. Patient's initial sepsis screen is negative. Risk Assessment: Do you want to hurt yourself or someone else? Patient reports no desire to harm self or others. Onset of symptoms was October 16, 2024. 11:17 Method Of Arrival: EMS: [facility] hb 11:17 Acuity: OFELIA 3 hb Historical: - Allergies: 11:19 adhesive tape; hb 11:19 Latex; hb 11:19 bandaids; hb - PMHx: 11:19 abscess-sepsis; Anxiety; depression/suicidal ideation; heart flutter; Heart Murmur; hb Suicide attempt overdose on asprin and wine 08/2016; suicide attempt will pill overdose; - PSHx: 11:19 Appendectomy; section; hb - Immunization history:: Adult Immunizations up to date. - Infectious Disease History:: Denies. - Social history:: Smoking status: . Screenin:19 [facility] ED Fall Risk Assessment (Adult) History of falling in the last 3 months, hb including since admission No falls in past 3 months (0 pts) Confusion or Disorientation No (0 pts) Intoxicated or Sedated No (0 pts) Impaired Gait No (0 pts) Mobility Assist Device Used No (0 pt) Altered Elimination No (0 pt) Score/Fall Risk Level 0 - 2 = Low Risk Oriented to surroundings, Maintained a safe environment, Educated pt \T\ family on fall prevention, incl call for assistance when getting out of bed. Abuse screen: Denies threats or abuse. Denies injuries from another. Nutritional screening: No deficits noted. Tuberculosis screening: No symptoms or risk factors identified. Assessment: 11:19 General: Appears in no apparent distress. Behavior is calm, cooperative. Pain: Pain hb currently is 5 out of 10 on a pain scale. Neuro: GCS 15. Cardiovascular: Patient's skin is warm and dry. Respiratory: Respiratory effort is even, unlabored, Respiratory pattern is regular, symmetrical. GI: Reports upper abdominal pain, nausea, vomiting. : No signs and/or symptoms were reported regarding the genitourinary system. EENT: No signs and/or symptoms were reported regarding the EENT system. Derm: Skin is pink, warm \T\ dry. Musculoskeletal: No signs and/or symptoms reported regarding the musculoskeletal system. 12:15 Reassessment: Patient appears in no apparent distress at this time. Patient and/or hb family updated on plan of care and expected duration. Pain level reassessed. Patient is alert, oriented x 3, equal unlabored respirations, skin warm/dry/pink. 14:30 Reassessment: Patient appears in no apparent distress at this time. Patient and/or hb family updated on plan of care and expected duration. Pain level reassessed. Patient is alert, oriented x 3, equal unlabored respirations, skin warm/dry/pink. Vital Signs: 11:17 BP 121 / 89; Pulse 65; Resp 16; Temp 98.2(O); Pulse Ox 98% on R/A; Pain 5/10; hb 12:15 BP 137 / 66; Pulse 76; Resp 16; Pulse Ox 99% on R/A; hb 11:17 Pain Scale: Adult hb ED Course: 11:13 Patient arrived in ED. sb4 11:13 Senait Tolliver PA-C is PHCP. sb4 11:13 Noe Springer MD is Attending Physician. sb4 11:18 Triage completed. hb 11:19 Arm band placed on. hb 11:19 Patient has correct armband on for positive identification. Provided Education on: use hb of call light . 11:33 Inserted saline lock: 20 gauge in left antecubital area, using aseptic technique. Blood cc6 collected. Flushed with 10 mL NS. 11:34 Initial lab(s) drawn, by me, sent to lab. COVID swab sent to lab. Flu and/or RSV swab cc6 sent to lab. 11:34 Flu Sent. cc6 11:34 SARS RAPID Sent. cc6 11:34 CBC with Diff Sent. cc6 11:34 CMP Sent. cc6 11:34 Lipase Sent. cc6 12:09 Radiology exam delayed due to test not completed at this time. sm9 12:29 CT Abd/Pelvis - IV Contrast Only In Process Unspecified. EDMS 14:46 No provider procedures requiring assistance completed. IV discontinued, intact, hb bleeding controlled, No redness/swelling at site. Pressure dressing applied. Administered Medications: 11:30 Drug: Ondansetron IVP 4 mg IVP once; over 2 minutes Route: IVP; Site: left antecubital; hb 14:45 Follow up: Response: No adverse reaction hb 11:30 Drug: NS 0.9% IV 1000 ml IV at 1 bolus Per protocol; to be given as a bolus over 60 hb minutes Route: IV; Rate: 1 bolus; Site: left antecubital; 12:29 Follow up: Response: No adverse reaction; IV Status: Completed infusion hb Medication: 11:19 VIS not applicable for this client. hb Outcome: 14:13 Discharge ordered by . sb4 14:46 Discharged to home ambulatory, hb 14:46 Condition: stable 14:46 Discharge instructions given to patient, Instructed on discharge instructions, follow up and referral plans. medication usage, Demonstrated understanding of instructions, follow-up care, medications, Prescriptions given X 2, 14:46 Patient left the ED. hb Signatures: Dispatcher [employer] EDMS Sunita Mohamud RN RN hb Brown, Sophia, PA-C PA-C sb4 Nuzhat Nowak 9 Jessica Eason cc6 Corrections: (The following items were deleted from the chart) 12:40 12:00 BP 137 / 66; Pulse 76bpm; Resp 16bpm; Pulse Ox 99% RA; hb hb
[2024-10-21 15:02] VITALS: BP 121/89; TEMP 98.2; O2SAT 98
== END 2024-10-21 14:46 | disposition home or self-care (01) ==
LOC: ER 11:11
DX: K52.9 Noninfective gastroenteritis and colitis, unspecified (principal); B34.9 Viral infection, unspecified; Z11.52 Encounter for screening for COVID-19
CPT/HCPCS: 96361; 87088; 85025; 87086; 36415; 81025; 81015; 83690; 80053; 80307; 87804 ×2; 74177; 96374; 99284; 82077; 87811; Q9967; J2405; J7030

== ENCOUNTER 2025-01-25 00:59 | Emergency (ER) | payer OTHER, SELFPAY ==
--- OUTSIDE RECORDS SUMMARY | 2025-01-25 01:02 | XMS REPORT | Continuity of Care Document ---
Author Name Unknown Address [address] [facility] [address] [place] [address] [facility] [place] Address [address] [facility] [place] [address] [place] [address] Care Team Providers Care Real Estate Paralegal Name Role Phone PCP, PATIENT DOES NOT HAVE A Primary Care Physic chuyita Unavailable Marizol BENITO Attending Clinician Unavailable Marizol BENITO Attending Clinician Unavailable Marizol Bermeo Attending Clinician MARITA PHILLIPS Attending Clinician Unavailable Marita Phillips NP Attending Clinician [phone] KATHI TAYLOR Attending Clinician Unavailable Kathi Falcon Attending Clinician [phone] Marizol BENITO Admitting Clinician Unavailable MARITA PHILLIPS Admitting Clinician Unavailable Payers Payer Name Policy Type Policy Number Effective Date Expirati on Date Source [facility] Ab/ SHALINI OTOOLE [id number] 2024 00:00:00 [employer] [id number] 2022 00:00:00 Allergies, Adverse Reactions, Alerts Allergy Name Allergy Type Status Severity Reaction(s) Onset Date Inactive Date Treating Clinician Comments Source [employer]EX [employer] INGREDI Active Unknown-Cmnt 11-22 00:00: 00 [facility] BEE STING / VENOM DRUG INGREDI Active Unknown-Cmnt 11-22 00:00: 00 [facility] Bee Sting / Venom Propensi ty to adverse reaction s Active Unknown - See comments 11-22 00:00: 00 [facility] Latex Propensi ty to adverse reaction s Active Unknown - See comments 11-22 00:00: 00 [facility] NO KNOWN ALLERGIE S Drug Class Active [facility] Social History Social Habit Start Date Stop Date Quantity Comments Source Sexual [facility] Exposure to SARS-CoV-2 (event) 2023-01-13 00:00:00 2023-01-23 17:29:00 Not sure [facility] Sex assigned at 1985 00:00:00 1985 00:00:00 [facility] Smoking Status Start Date Stop Date Source Tobacco smoking consumption unknown [facility] Medications Ordered Medication Name Filled Medication Name Start Date Stop Date Current Medication? Ordering Clinician Indication Dosage Frequency Signature (SIG) Comments Components Source ibuprofen 600 mg tablet 11-22 00:00: 00 Yes [id number] 600mg Take 1 tablet by mouth every 6 (six) hours as needed for Pain (scale 4-6). [facility] HYDROcodone -acetaminop hen (NORCO) 10-325 mg tablet 1 tablet 01-23 22:00: 00 01-23 21:56 :00 No 1{tbl} 1 tablet, Oral, ONCE, 1 dose, On 01/23/23 at 1700, Routine [facility] acetaminoph en-codeine (TYLENOL-CO DEINE #3) 300-30 mg tablet 01-23 00:00: 00 Yes [id number] 1{tbl} Take 1 tablet by mouth every 4 (four) hours as needed for Pain (scale 7-10). Indication s: acute pain [facility] ibuprofen 600 mg tablet 01-23 00:00: 00 Yes [id number] 600mg Take 1 tablet by mouth every 6 (six) hours as needed for Pain (scale 4-6) or Pain (scale 1-3). [facility] predniSONE 20 mg tablet 07-10 00:00: 00 Yes 40mg Take 2 tablets by mouth daily. [facility] Vital Signs Vital Name Observation Time Observation Value Comments Sadie petty Systolic blood pressure 2024-11-23 01:40:00 133 mm[Hg] [facility] Diastolic blood pressure 2024-11-23 01:40:00 94 mm[Hg] [facility] Heart rate 2024-11-23 01:40:00 80 /min [facility] Body temperature 2024-11-23 01:40:00 37 Maria Esther [facility] Respiratory rate 2024-11-23 01:40:00 16 /min [facility] Oxygen saturation in Arterial blood by Pulse oximetry 2024-11-23 01:40:00 98 /min [facility] Body height 2024-11-22 23:59:00 170.2 cm [facility] Body weight 2024-11-22 23:59:00 79.379 kg [facility] BMI 2024-11-22 23:59:00 27.41 kg/m2 [facility] Systolic blood pressure 2023-01-23 22:29:00 102 mm[Hg] [facility] Diastolic blood pressure 2023-01-23 22:29:00 75 mm[Hg] [facility] Heart rate 2023-01-23 22:29:00 101 /min [facility] Respiratory rate 2023-01-23 22:29:00 16 /min [facility] Oxygen saturation in Arterial blood by Pulse oximetry 2023-01-23 22:29:00 97 /min [facility] Body temperature 2023-01-23 19:56:00 37.06 Maria Esther [facility] Body height 2023-01-23 19:56:00 172.7 cm [facility] Body weight 2023-01-23 19:56:00 81.647 kg [facility] BMI 2023-01-23 19:56:00 27.37 kg/m2 [facility] Systolic blood pressure 2021-12-25 23:57:00 117 mm[Hg] [facility] Diastolic blood pressure 2021-12-25 23:57:00 62 mm[Hg] [facility] Heart rate 2021-12-25 23:57:00 89 /min [facility] Body temperature 2021-12-25 23:57:00 37 Maria Esther [facility] Respiratory rate 2021-12-25 23:57:00 22 /min [facility] Body weight 2021-12-25 23:57:00 87.045 kg [facility] BMI 2021-12-25 23:57:00 30.06 kg/m2 [facility] Oxygen saturation in Arterial blood by Pulse oximetry 2021-12-25 23:57:00 100 /min [facility] Procedures Procedure Date / Time Performed Performing Clinician Source XR HAND <3 VW LEFT 2024-11-23 00:26:05 Marizol Benito [facility] ED SPLINT APPLICATION 2023-01-23 21:53:15 Marni Phillips [facility] POCT TEST 2023-01-23 21:08:00 Marita Phillips [facility] CONSENT/REFUSAL FOR DIAGNOSIS AND TREATMENT 2023-01-23 19:46:29 Doctor Unassigned, [place] [facility] CONSENT/REFUSAL FOR DIAGNOSIS AND TREATMENT 2021-12-25 23:52:42 Doctor Unassigned, [place] [facility] Encounters Start Date/Time End Date/Time Encounter Type Admission Type Attending Clinicians Care Facility Care Department Encounter ID Source 2024-11-22 18:01:00 2024-11-22 19:49:00 Emergency X Marizol BENITO K [facility] ERT [id number] [facility] 2024-11-22 18:01:00 2024-11-22 19:49:00 Emergency Marizol Benito [facility] [id number] [facility] 2024-11-06 16:33:19 2024-11-06 16:33:19 Outpatient [facility] [id number] Alfa Saenz 2023-05-19 13:09:03 2023-05-19 13:09:03 Outpatient [facility] [id number] Alfa Saenz 2023-05-18 17:29:59 2023-05-18 17:29:59 Outpatient [facility] [id number] Alfa Saenz 2023-01-23 14:57:00 2023-01-23 17:35:00 Emergency X MARITA PHILLIPS [facility] ERT [id number] [facility] 2023-01-23 14:57:00 2023-01-23 17:35:00 Emergency Marita Phillips [facility] [id number] [facility] 2021-12-25 17:58:00 2021-12-25 20:01:00 Emergency X KATHI TAYLOR [facility] ERT [id number] [facility] 2021-12-25 17:58:00 2021-12-25 20:01:00 Emergency Taylor Kathi S [facility] [id number] [facility] Results Test Description Test Time Test Comments Results Resul t Comments Source XR Hand <3 vw left 2024-10-26 1 01:11:43 Ordering physician: Marizol Ahn of service: ?11/22/2024 7:09 PMClinical history: ?swelling of hand ?COMPARISON: None Technique: 2 views left hand.Technical Quality: Diagnostic FINDINGS:Subtle dorsal soft tissue swelling without obvious fracture. There issubtle periosteal thickening of the third metacarpal neck. Normal alignment and preserved joint spaces. No periarticular erosions.Mineraliz ation is normal.There is an ossific density adjacent to the index finger metacarpal headwhich is felt to be a sesamoid seen on lateral view. [facility] Notes Date/Time Note Provider Source 2024-11-22 19:48:33 Awake, alert oriented X4, respiratory even and unlabored,skin w/d color appropriate for race, moves all ext well, pt encouraged to follow up with pcp and or return as needed. Pt given printed and verbal discharge instructions regarding hand swelling and ganglion cyst. Patient verbalized understanding and signature obtained, patient denies any other concerns. Prescriptions provided. Advised to seek medical attention for new/prolonged/worsening of symptoms. Pt ambulated to the lobby with steady gait. NA Irby RN [facility] 2024-11-22 18:00:54 CC: patient presents to the ER with complaints of swelling and left sided hand pain that has been present for the past two weeks. Patient states she has taken ibuprofen without relief. Awake, alert, oriented, resp reg unlabored, skin warm and dry, color appropriate for race, moves all ext without difficulty, amb without assistance. Appears in no distress. [facility]
[2025-01-25 01:58] LABS: Specific Gravity 1.012 (1.005-1.030)
[2025-01-25 02:01] LABS: Absolute Basophils 0.1 K/uL (0-0.5); Absolute Lymphocytes (CBC) 1.8 K/uL (0.7-4.9); Absolute Monocytes 0.5 K/uL (0.1-1.3); Absolute Neutrophil 5.8 K/uL (1.8-8.0); Basophils % 0.8 % (0-1.3); Eosinophils % 0.4 % (0-4.4); Hemoglobin 16.7 g/dL (12.0-15.0); Lymphocytes % 21.8 % (15.3-44.8); MCH 34.6 pg (27.0-35.0); MCHC 34.8 g/dL (32.0-36.0); MCV 99.3 fL (80-100); MPV 8.3 fL (7.6-11.3); Monocytes % 6.6 % (3.3-12.3); Neutrophils % 70.4 % (41.7-73.7); Platelets 270 thou/uL (152-406); RBC Red Blood Cell Count 4.83 M/uL (3.86-4.86)
[2025-01-25 02:09] LABS: Specific Gravity 1.012 (1.005-1.030); Sqamous Epithelial <5 /HPF (None Seen); Urine Bacteria None Seen /HPF (<20); Urine Bilirubin NEGATIVE (Negative); Urine Blood Negative (Negative); Urine Clarity Turbid (Clear); Urine Color Light-Yellow (Yellow); Urine Culture Reflex Order NOT NEEDED; Urine Glucose NEGATIVE (Negative); Urine Ketones NEGATIVE (Negative); Urine Microscopic Reflex YN ORDER UMIC; Urine Nitrite NEGATIVE (Negative); Urine Protein NEGATIVE (Negative); Urine RBC <5 /HPF (None Seen); Urine Urobilinogen Normal (Normal); Urine WBC <5 /HPF (<5); Urine pH 5.5 (5.0-7.0)
[2025-01-25 02:11] LABS: Barbiturates NEGATIVE (NEGATIVE); Benzodiazepines NEGATIVE (NEGATIVE); Cocaine POSITIVE (NEGATIVE); METHAMPHETAM NEGATIVE (NEGATIVE); Methadone NEGATIVE (NEGATIVE); Opiates NEGATIVE (NEGATIVE); Phencyclidine NEGATIVE (NEGATIVE); THC Cannibis POSITIVE (NEGATIVE)
[2025-01-25 02:11] LABS: PT Prothrombin Time 11.5 SECONDS (10-13.0); PTT, Activated Partial Thromb 27.4 SECONDS (27.2-37.4); Protime INR 1.01
[2025-01-25 02:40] LABS: ALT/SGPT 35 U/L (13-56); AST/SGOT 17 U/L (15-37); Albumin 3.9 g/dL (3.4-5.0); Alkaline Phosphatase 75 U/L (45-117); Anion Gap 8.4 mEq/L (5.0-15.0); BUN Blood Urea Nitrogen 10 mg/dL (7-18); Bicarbonate 23 mEq/L (21-32); Bilirubin Total 0.2 mg/dL (0.2-1.0); Globulin 3.9 g/dL (2.3-3.5); Glomerular Filtration Rate 118 ml/min (=/>90); Glucose Level 99 mg/dL (74-106); Potassium 3.4 mEq/L (3.5-5.1); Protein, Total 7.8 g/dL (6.4-8.2); Sodium Level 137 mEq/L (136-145)
[2025-01-25 02:41] LABS: Bilirubin Direct < 0.2 mg/dL (0-0.2)
--- NOTE | 2025-01-25 04:01 | RAD REPORT ---
PROCEDURE: CT Head and Cervical Spine Without Intravenous Contrast CLINICAL INDICATION: The patient is 40 years old and is Female; TRAUMA Bed Name: 14 TECHNIQUE: Axial computed tomography images of the head/brain and cervical spine without intravenous contrast. Sagittal and coronal reformatted images were created and reviewed. This CT exam was performed using one or more of the following dose reduction techniques: automated exposure control, adjustmen t of the mA and/or kV according to patient size, and/or use of iterative reconstruction technique. COMPARISON: No relevant prior studies available. FINDINGS: BRAIN: No extra-axial fluid collection. No intracranial hemorrhage. No transtentorial herniation. N o focal goodwin-white matter differentiation abnormality. VENTRICLES: Unremarkable No ventriculomegaly. SKULL: No acute fracture. SINUSES: Unremarkable as visualized. No acute sinusitis. MASTOID AIR CELLS: Unremarkable as visualized. No mastoid effusion. VERTEBRAE: Unremarkable No acute fracture. Normal alignment. DISCS/SPINAL CANAL/NEURAL FORAMINA: No acute findings. No spinal canal stenosis. SOFT TISSUES: Unremarkable IMPRESSION: 1. No acute intracranial abnormality. 2. No acute cervical spine abnormality. Electronically signed by: Maged Steward MD 01/25/2025 03:12 AM CDT RP Due to temporary technical issues with the PACS/ivWatch reporting system, reports are being jesus d by the in-house radiologist without review as a courtesy to ensure prompt reporting the interpreting radiologist is fully responsible for the content of the report. Transcribed Date/Time: 01/25/2025 4:01 AM
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
[2025-01-25 09:54] VITALS: BP 110/67; TEMP 98; O2SAT 98
--- NOTE | 2025-01-25 13:19 | EKG ---
Test Date: 2025-01-25 Test Time: 01:13:19 Crotch Breaker: RAS MEASUREMENT RESULTS: Intervals: Rate: 93 NC: 138 QRSD: 96 QT: 366 QTc: 455 [place]: P: 71 NC: 138 QRS: 56 T: 80 INTERPRETIVE STATEMENTS: Normal sinus rhythm Normal ECG Compared to ECG 03/14/2024 23:38:15 Incomplete right bundle-branch block no longer present Electronically Signed On 01-25-25 13:18:35 CDT by Kaden Lezama
== END 2025-01-25 09:44 ==
LOC: ER 00:59
DX: R45.851 Suicidal ideations (principal); T74.11XA Adult physical abuse, confirmed, initial encounter
CPT/HCPCS: 36415; 70450; 72125; 80048; 80076; 80143; 80179; 80307; 81001; 81025; 82077; 85025; 85610; 85730; 93005; 99285